=== PATIENT | female | born 1965 | race Caucasian/White ===

== ENCOUNTER → 2019-08-27 13:30 | Outpatient (CLI) | payer MEDICARE, MEDICAID, SELFPAY ==
--- NOTE | ~2019-08-27 | MM_ITS ---
EXAMINATION: MM screening adia BI w sydni HISTORY: Screening mammogram, family history of breast cancer in her sister. TECHNIQUE: Craniocaudal and mediolateral oblique 3-D tomosynthesis images were obtained and synthetic 2-D images were generated. CAD analysis was submitted and interpreted. COMPARISON: 07/26/2018, 02/21/2017, 02/18/2016 BREAST PARENCHYMAL COMPOSITION: There are scattered areas of fibroglandular density. FINDINGS: RIGHT BREAST: An asymmetry is present in the middle third of the outer breast 6 cm from the nipple on the craniocaudal view. LEFT BREAST: There is no evidence of suspicious mass, calcification, or architectural distortion to s uggest malignancy. There has been no significant interval change. IMPRESSION: 1. Right breast asymmetry on the craniocaudal view. 2. Additional mammographic views and possible breast ultrasound are recommended. BI-RADS Category 0: Incomplete: Needs additional imaging evaluation. Reviewed, dictated and finalized at location A. IMPRESSION: 1. Right breast asymmetry on the craniocaudal view. 2. Additional mammographic views and possible breast ultrasound are recommended . BI-RADS Category 0: Incomplete: Needs additional imaging evaluation.
== END ==
PROVIDERS: PCP Nurse Practitioner Family; Visit Provider Nurse Practitioner Family
DX: Z12.31 Encounter for screening mammogram for malignant neoplasm of breast (principal); R92.8 Other abnormal and inconclusive findings on diagnostic imaging of breast
CPT/HCPCS: 77063; 77067

== ENCOUNTER → 2019-09-11 08:16 | Outpatient (CLI) | payer MEDICARE, MEDICAID, SELFPAY ==
--- NOTE | ~2019-09-11 | US_ITS ---
Please refer to diagnostic mammogram report dated 09/11/2019 for details. Reviewed, dictated and finalized at location A.
--- NOTE | ~2019-09-11 | MM_ITS ---
EXAMINATION: MM diagnostic mammo unilat RT HISTORY: Follow-up right breast asymmetry TECHNIQUE: Additional 3-D tomosynthesis images of the right breast were performed and synthetic 2-D i mages were generated. CAD analysis was submitted and interpreted. High resolution right breast ultras ound was performed. COMPARISON: Comparison to multiple prior studies sequentially, with oldest reviewed study dated 07/23. FINDINGS: MAMMOGRAPHIC FINDINGS: Breast composed of scattered areas of fibroglandular density. There are no suspicious masses, calcifi cations or architectural distortion in the right breast to suggest malignancy. ULTRASOUND: Right breast ultrasound: At 9:00, 5 cm from the nipple, there is a oval circumscribed hypoechoic mass with parallel orientatio n, no significant posterior features or internal vascularity. This mass measures 4 x 3 x 4 mm. IMPRESSION: 1. Probable benign right breast mass at 9:00, 5 cm from the nipple. 2. Recommend 6 month follow-up right breast ultrasound BI-RADS category 3, probably benign findings. Reviewed, dictated and finalized at location A.
== END ==
PROVIDERS: PCP Nurse Practitioner Family; Visit Provider Nurse Practitioner Family
DX: R92.8 Other abnormal and inconclusive findings on diagnostic imaging of breast (principal)
CPT/HCPCS: 76642; 77065

== ENCOUNTER → 2020-04-17 07:42 | Outpatient (CLI) | payer MEDICARE, MEDICAID, SELFPAY ==
--- NOTE | ~2020-04-17 | US_ITS ---
EXAMINATION: US breast RT limited HISTORY: Six-month follow-up for probably benign right breast mass TECHNIQUE: Limited right breast ultrasound is performed. FINDINGS: There is a stable 4 mm x 2 mm oval, circumscribed, parallel, hypoechoic mass with no oil separator ior features or internal vascularity at the 9:00 location 5 cm from the nipple. IMPRESSION: Stable, probably benign right breast mass. Follow-up targeted ultrasound six months is recommended. BI-RADS category 3, probably benign findings. Reviewed, dictated and finalized at location A. EN PRINTING MACHINE LOADER UNLOADER IMPRESSION: Stable, probably benign right breast mass. Follow-up targeted ultrasound six mo nths is recommended. BI-RADS category 3, probably benign findings.
--- NOTE | ~2020-04-17 | DEXA_ITS ---
Bone Density Report Name: Juanita Dunbar Age: 54 Sex: Female Ethnicity: White Date of : 1965 Indication: postmenopausal; screening for osteoporosis; height loss; seizure disorder; hysterectomy; Referring Provider: WING, REYES Study: Bone densitometry was performed. Exam Date: April 17, 2020 Accession number: [id number] Bone Density: Region BMD T-score Z-score Classification AP Spine (L1, L3, L4) 1.034 -0.2 1.0 Normal Femoral Neck (Left) 0.607 -2.2 -1.1 Osteopenia Total Hip (Left) 0.880 -0.5 0.2 Normal Femoral Neck (Right) 0.642 -1.9 -0.8 Osteopenia Total Hip (Right) 0.808 -1.1 -0.4 Osteopenia Total Hip Mean 0.844 -0.8 -0.1 Normal World Health Organization criteria for BMD impression classify patients as: Normal (T-score at or above -1.0), Osteopenia (T-score between -1.0 and -2.5), or Osteoporosis (T-score at or below -2.5). 10-year Fracture Risk(1): Major Osteoporotic Fracture 8.1% Hip Fracture 1.7% Reported Risk Factors: [place] (), Neck BMD=0.607, BMI=36.3, smoking (1) FRAX(R) Version 3.08. Fracture probability calculated for an untreated patient. Fracture probability may be lower if the patient has received treatment. Clinical Information Provided by Patient: Smokes Has used the following medications: Vitamin D Has the following medical conditions: Any Seizure Disorders, Hysterectomy, kidney failure, prescription bowel med Patient maximum height was 66 Menopause Age: 33 No regular weight bearing exercise Does not regularly consume dairy products Drinks caffeinated beverages Onset of menses at age 16 Number of children 1 Impression: The patient has low bone mass, based on the Left Femoral Neck T-score. The patient has an estimated ten-year risk of hip fracture of 1.7% and an estimated ten-year risk of major fracture of 8.1%, based on the WHO FRAX algorithm. The patient has risk factors, including: smoking. Discussion: BONE DENSITY IS LOW AT ONE OR MORE SKELETAL SITES. This patient's lowest T-score is low at one or more skeletal sites. It meets the World Health Organization's (WHO) criteria for ?low bone mass? (T-score between -1.0 and -2.5). The patient's 10-year risk of fracture as calculated by FRAX is less than the threshold where pharmacological therapy is recommended by the National Osteoporosis Foundation (NOF). However, all treatment decisions require clinical judgment and consideration of individual patient factors, including patient preferences, comorbidities, previous drug use, risk factors not captured in the FRAX model (e.g., frailty, falls, vitamin D deficiency, increased bone turnover, interval significant decline in bone density) and possible under or overestimation of fracture risk by FRAX. The patient should follow a healthful lifestyle (good nut
== END ==
PROVIDERS: PCP Nurse Practitioner Family; Visit Provider Nurse Practitioner Family
DX: N63.11 Unspecified lump in the right breast, upper outer quadrant (principal); Z78.0 Asymptomatic menopausal state; M85.852 Other specified disorders of bone density and structure, left thigh; M85.851 Other specified disorders of bone density and structure, right thigh
CPT/HCPCS: 76642; 77080

== ENCOUNTER → 2020-08-26 08:49 | Outpatient (CLI) | payer MEDICARE, SELFPAY ==
--- NOTE | ~2020-08-26 | US_ITS ---
EXAMINATION: US breast RT limited HISTORY: Six-month follow-up for probably benign right breast mass TECHNIQUE: Limited right breast ultrasound was performed. COMPARISON: 04/17/2020, 09/11/2019 FINDINGS: There is a stable 5 mm x 2 mm oval, circumscribed, parallel, hypoechoic mass with no contact center engineer ior features or internal vascularity at the 9:00 location 5 cm from the nipple. IMPRESSION: Stable, probably benign right breast mass. Given the 12 months of interval stability, follow-up targe desire right breast ultrasound in one year is recommended. BI-RADS category 3, probably benign findings. Reviewed, dictated and finalized at location A. IMPRESSION: Stable, probably benign right breast mass. Given the 12 months of interval stab ility, follow-up targeted right breast ultrasound in one year is recommended. BI-RADS category 3, probably benign findings.
--- NOTE | ~2020-08-26 | MM_ITS ---
EXAMINATION: MM screening adia BI w sydni HISTORY: Screening mammogram, family history of breast cancer in her sister. TECHNIQUE: Craniocaudal and mediolateral oblique 3-D tomosynthesis images were obtained and synthetic 2-D images were generated. CAD analysis was submitted and interpreted. COMPARISON: 09/11/2019, 08/27/2019, 07/26/2018, 02/21/2017 BREAST PARENCHYMAL COMPOSITION: There are scattered areas of fibroglandular density. FINDINGS: There is no evidence of suspicious mass, calcification, or architectural distortion to sugg est malignancy in either breast. There has been no suspicious interval change. IMPRESSION: 1. No mammographic evidence of malignancy. 2. Recommend routine screening mammography in one year. BI-RADS Category 1: Negative Reviewed, dictated and finalized at location A.
== END ==
PROVIDERS: PCP Nurse Practitioner Family; Visit Provider Nurse Practitioner Family
DX: Z12.31 Encounter for screening mammogram for malignant neoplasm of breast (principal); N63.0 Unspecified lump in unspecified breast; R92.8 Other abnormal and inconclusive findings on diagnostic imaging of breast
CPT/HCPCS: 76642; 77063; 77067

== ENCOUNTER 2020-11-20 01:27 | Observation (INO) | payer MEDICARE, MEDICAID, SELFPAY ==
[2020-11-20] VITALS (24 sets, daily range): BP systolic 111–155; BP diastolic 62–108; PULSE 63–113; RESP 12–20; TEMP 36.1–36.9; O2SAT 92–97; BMI 33.0
--- NOTE | ~2020-11-20 | CT_ITS ---
EXAMINATION: CT brain wo con DATE: 11/20/2020 02:25 INDICATION: Seizure TECHNIQUE: Computed tomography (CT) of the head was performed without intravenous contrast. The mA wa s adjusted according to patient size. Iterative reconstruction technique was employed. Exam dose: 60 5.33 mGy-cm total exam DLP. COMPARISON: 01/18/2018 CT brain FINDINGS: Examination is very limited due to extensive motion artifact. No gross intracranial mass lesion or hemorrhage or midline shift or mass effect is evident. Normal ve ntricular size. No obvious skull fracture is evident. IMPRESSION: Very limited examination due to extensive motion artifact Reviewed, dictated and finalized at [facility]. Reviewed, dictated and finalized at [facility].
--- NOTE | 2020-11-20 01:49 | ED.SEIZURE ---
HPI - Seizure General Chief Complaint: Seizure Stated Complaint: seizures Time Seen by Provider: 11/20/20 01:45 Source: family and EMS Mode of arrival: EMS Limitations: altered mental status and clinical condition History of Present Illness HPI Narrative: Patient is a 55-year-old female brought in by EMS due to seizure x4 episodes lasting for approximately 30 seconds each witnessed by family member, which was described as tonic-clonic and eyes rolling back of her head , no urinary or bowel incontinence, with postictal confusion. Patient was diagnosed with seizures months ago and placed on Keppra. Family member unsure if patient is compliant with her Keppra. Seizure History: Yes Related Data Allergies Allergy/AdvReac Type Severity Reaction Status Date / Time No Known Allergies Allergy Unverified 06/04/18 18:13 Review of Systems Review of Systems: ROS unobtainable: Yes unobtainable due to medical condition (Postictal) PMFSH Comments Past medical history: Seizure Family history: Unknown Social history: Unknown Exam Const: General: cooperative, healthy appearing, comfortable, no acute distress, well developed, alert and awake; No confusion Limitations: no limitations and other limitations (Altered mental status/postictal) HENMT: Head: normal to inspection, normocephalic and atraumatic Ears: hearing grossly normal bilaterally, TM normal on the right and TM normal on the left General nose exam: Normal external nose present, Normal nares present and No nasal discharge present Face and sinus: normal facial exam Mouth: Yes Normal oral and palatal mucosa present, Yes lip normal, Yes tongue normal and Yes oropharynx normal Throat: posterior oropharynx normal, tonsils normal and uvula midline Eyes: General: appearance normal, both eyes and all related structures Pupils: Equal, round and reactive pupils present EOM: EOMs intact bilaterally Neck: Neck: normal visual inspection, full ROM, no lymphadenopathy and no meningeal signs Chest: Chest palpation & inspection: normal inspection of the chest Resp: Effort & Inspection: normal respiratory effort, able to speak in complete sentences, no respiratory distress and not tachypneic Auscultation: clear to auscultation bilaterally, no crackles, no rales, no rhonchi and no wheezes Cardio: Rate: regular rate Rhythm: regular rhythm GI: Inspection: normal to inspection GI Palp: No abdominal tenderness, Yes Soft to palpation, No Tenderness to palpation present (GI), No Guarding due to palpation present (GI), No Rigid due to palpation and No Rebound tenderness present Auscultation: normal bowel sounds : General: Yes no CVA tenderness Back/Spine/Pelvis: Back: no CVA tenderness Skin: General skin exam: normal color, no rashes or lesions noted, elasticity normal and turgor normal Neuro: General: tone normal, moves all extremities, Normal light touch and pain sensation and no focal motor deficits Extrem: General: normal to inspection and capillary refill normal Psych: Appearance: grossly normal and well kempt Course Course Emergency Course: Patient had a seizure episode while here in the emergency room, was given Ativan 2 mg IV x1 and Keppra 1000 mg IV x1. No seizure since Vital Signs Vital signs: Vital Signs Temperature 36.1 C L 11/20/20 01:27 Respiratory Rate 16 11/20/20 01:27 Temperature 36.1 C L 11/20/20 01:27 Pulse Rate 80 11/20/20 02:42 Respiratory Rate 15 11/20/20 02:42 Blood Pressure 125/82 11/20/20 02:42 Pulse Oximetry 94 11/20/20 02:42 MDM - Seizure MDM Narrative Medical decision making narrative: Reviewed her labs and her CT head. CBC within normal limits except for a low platelets of 130. Chemistry within normal limits. UA no signs of urinary tract infection. CT scan of her head did not show any acute intracranial process. Since patient had 4 seizures prior to arrival and another seizure here in the emergency room, was given IV Kepp
--- NOTE | 2020-11-20 02:04 | PC.NURSE ---
pt medicated for witnessed seizure. now resting in bed with seizure pads in place. meds given as ordered.
[2020-11-20] MEDS: SODIUM CHLORIDE 0.9% IV 1,000 ML 999 ML IV CONT (02:08)
[2020-11-20] MEDS: LORazepam INJ (*CRX) 2 MG/ML VIAL IV PUSH (02:09)
[2020-11-20] MEDS: levETIRAcetam 1000MG/NACL100ML 1,000 MG/100 ML BAG 400 MG IVPB (02:09)
[2020-11-20 02:51] LABS: Basophils Absolute Auto 0.1 K/mm3 (0.0-0.1); Basophils Percent Auto 0.9 % (0.2-1.2); Eosinophils Absolute Auto 0.2 K/mm3 (0-0.3); Eosinophils Percent Auto 2.1 % (0-4.4); Hemoglobin 14.5 g/dL (12.0-15.0); Immature Granulocyte Absolute 0.04 K/mm3 (0.00-0.031); Immature Granulocyte Percent A 0.5 % (0-0.5); Immature Platelet Fraction Pct 12.2 % (0.9-11.2); Lymphocytes Absolute Auto 0.78 K/mm3 (0.9-3.2); Lymphocytes Percent Auto 10.4 % (18.3-44.2); Mean Corpuscular HGB Conc 31.5 g/dl (32-36); Mean Corpuscular Volume 95.2 fl (80-100); Mean Platelet Volume 12.6 fl (7.4-10.4); Monocytes Absolute Auto 0.3 K/mm3 (0.1-0.6); Monocytes Percent Auto 4.4 % (2.6-8.5); Neutrophils Absolute Auto 6.1 K/mm3 (1.3-6.7); Neutrophils Percent Auto 81.7 % (45.5-73.1); Platelet Count Result 130 k/mm3 (150-375); Red Blood Count 4.83 M/mm3 (4.2-5.4); Red Cell Distribution Width 15.1 % (11.5-14.5); White Blood Count 7.5 K/mm3 (4.5-10.0)
[2020-11-20 02:57] LABS: Add Urine Microscopic? YES; Appearance Urine Cloudy (Clear); Bilirubin Urine Negative (Negative); Blood Urine Negative (Negative); Color Urine Yellow (Yellow); Glucose Urine UA Negative (Negative); Ketones Urine 1+ mg/dL (Negative); Leukocyte Esterase Ur Negative LEU/UL (Negative); Mucus Urine Rare /lpf; Nitrate Urine Negative (Negative); Protein Urine 1+ mg/dL (Negative); RBC Urine 0-2 /hpf (0-2); Specific Grav Ur 1.018 (1.001-1.035); Squamous Epithelial Cell Urine Occasional /hpf (Few); Urobilinogen Urine Negative mg/dL (<2.0); WBC Urine 0-3 /hpf
[2020-11-20 03:03] LABS: Alanine Aminotransferase 17 U/L (4-35); Albumin Level 4.3 g/dL (3.5-5.1); Alkaline Phosphatase 87 U/L (38-126); Anion Gap 10 mmol/L (8-16); Aspartate Amino Transferase 25 U/L (14-36); Bilirubin,Total 0.5 mg/dL (0.2-1.3); Blood Urea Nitrogen 13 mg/dL (7-17); Calcium 9.3 mg/dL (8.4-10.2); Carbon Dioxide 23 mmol/L (22-30); Chloride 108 mmol/L (98-107); Estimated Glomerular Filt Rate > 60; Glucose 144 mg/dL (65-105); Sodium 141 mmol/L (137-145)
[2020-11-20 03:15] LABS: Troponin I < 0.012 ng/mL (0.000-0.034)
--- NOTE | 2020-11-20 04:11 | PC.NURSE ---
pt appears asleep, resting in bed c eyes closed. resps even/nonlabored. NO loss of bowel or bladder during seizure episodes. pt continues to remove pulse ox monitor when this RN leaves room. asked pt if she knew where she was at, to which she responded Hospital . pt then went back to sleep. family at bedside. will continue to monitor.
--- NOTE | 2020-11-20 04:54 | PC.NURSE ---
per EMS medic, pt's home meds include: Aspirin atorvastatin fluoxetine hctz levothyroxine meloxicam oxybutynin
--- NOTE | 2020-11-20 05:14 | PC.NURSE ---
HELDER received. Report given by SHANIA Gaston at 0500. All questions answered and plan of care reviewed. This patient to go to ICU room 2.
--- NOTE | 2020-11-20 05:15 | ADMGEN ---
This patient, Juanita Dunbar, was admitted to Intensive Care Unit-2 at 0515 from the Emergency Department. Patient/family oriented to hospital policies and general routines including ID bracelet, bed and alarms, visiting hours, pain management, procedures, bathroom and other care routines, personal items, smoking policy, room service/diet, and visiting hours. Information on how to activate the Rapid Response Team has been discussed. Patient/Family are encouraged to report perceived risks to care and to ask questions if they do not understand what they are told or what they should do.
[2020-11-20] MEDS: LACTATED RINGERS 1,000 ML 125 ML IV CONT (07:37)
--- NOTE | 2020-11-20 09:11 | WPDCNINT ---
Assessment and Plan Assessment and plan (1) Seizures: Code(s): R56.9 - Unspecified convulsions Status: Acute Assessment and Plan: Patient presented with seizures x3 at home which was witnessed by the family. One seizure was witnessed in the ER -patient was given Keppra 1000 mg IV x1 and Ativan in the ER, no seizure activity noted after that -started on Keppra 500 mg IV q.12 hours in the ICU -patient is awake, alert, oriented, nonfocal -neurology has been consulted -patient did tell me that she may have forgot to take her Keppra at home -continue seizure precautions (2) Essential hypertension: Code(s): I10 - Essential (primary) hypertension Status: Acute Assessment and Plan: History of essential hypertension, will continue with home medications, metoprolol, hydrochlorothiazide (3) Hypothyroidism: Code(s): E03.9 - Hypothyroidism, unspecified Status: Acute Assessment and Plan: Restart levothyroxine (4) Hyperlipidemia: Code(s): E78.5 - Hyperlipidemia, unspecified Status: Acute Assessment and Plan: Restart atorvastatin (5) Bipolar disorder: Code(s): F31.9 - Bipolar disorder, unspecified Status: Acute Assessment and Plan: Continue fluoxetine, (6) DVT prophylaxis: Code(s): Z29.9 - Encounter for prophylactic measures, unspecified Status: Acute Assessment and Plan: SCDs Additional Plan Will start p.o. diet Discussed with patient updated with her condition and plan of care Code status: Full code Critical care time spent: 43 minutes [place] [address] [place] [address] Progress NoteSigned Patient: Andres Gleason GMR#: [id number]: 9Acct:[id number]/Sex: 61 / MADM Date: 11/10/20Loc: [facility]3Attending Dr: Beau Mike MD cc: ~ Progress Note: A&P Assessment and Plan (1) Acute respiratory failure with hypoxia and hypercapnia: Code(s): J96.01 - Acute respiratory failure with hypoxia; J96.02 - Acute respiratory failure with hypercapnia Status: Acute Assessment and Plan: Acute hypercapnic respiratory failure likely related to COPD exacerbation, likely pneumonia -patient was intubated on 11/10/2020 -successfully extubated on 11/18/2020 -status post cefepime and vancomycin -repeat sputum resources representative of the lower respiratory tract -continue bronchodilators -discussed with sales assistant, recommended ABGs now pCO2 level without wearing BiPAP, will place orders -patient did not been his BiPAP overnight (2) Acute exacerbation of chronic obstructive airways disease: Code(s): J44.1 - Chronic obstructive pulmonary disease with (acute) exacerbation Status: Acute Assessment and Plan: Continue , bronchodilators,ion -off steroids (3) Tobacco dependence: Code(s): F17.200 - Nicotine dependence, unspecified, uncomplicated Status: Acute Assessment and Plan: Discussed with patient regarding cessation of tobacco use, I did discuss with him that given his COPD, smoking would be detrimental to his function -patient stated he is going to try (4) Alcohol abuse: Code(s): F10.10 - Alcohol abuse, uncomplicated Status: Acute Assessment and Plan: Continue thiamine and folic acid (5) Elevated troponin: Code(s): R77.8 - Other specified abnormalities of plasma proteins Status: Acute Assessment and Plan: Elevated troponins, trending down. Likely related to her acute respiratory failure COPD exacerbation -echocardiogram 11/13/2019: Mild left ventricular hypertrophy, moderate global hypokinesis, EF 40%, grade 2 diastolic dysfunction, no significant valve disease, no pulmonary hypertension -continue diuresis (6) DVT prophylaxis: Code(s): Z29.9 - Encounter for prophylactic measures, unspecified Status: Acute Assessment and Plan: DVT prophylaxis: Lovenox (7) Dietary counseling and surveillance:
--- NOTE | 2020-11-20 09:15 | CONS_ITS ---
This report was recreated on November 26, 2020. Original report was signed by Dr. Manda Hurd on 11/20/20 at 1106. Addendum was also signed by Dr. Humberto Hurd on November 20, 2020 at 1442. ADDENDUM Tobacco use: Counseled patient on cessation of tobacco use, and marijuana use Addendum Documented By: Manda Hurd MD 11/20/20 1442 Addendum Signed By: <Electronically signed by Manda Hurd MD>10/29 09/17 1442 Assessment and Plan Assessment and plan (1) Seizures: Code(s): R56.9 - Unspecified convulsions Status: Acute Assessment and Plan: Patient presented with seizures x3 at home which was witnessed by the family. One seizure was witnessed in the ER -patient was given Keppra 1000 mg IV x1 and Ativan in the ER, no seizure activity noted after that -started on Keppra 500 mg IV q.12 hours in the ICU -patient is awake, alert, oriented, nonfocal -neurology has been consulted -patient did tell me that she may have forgot to take her Keppra at home -continue seizure precautions (2) Essential hypertension: Code(s): I10 - Essential (primary) hypertension Status: Acute Assessment and Plan: History of essential hypertension, will continue with home medications, metoprolol, hydrochlorothiazide (3) Hypothyroidism: Code(s): E03.9 - Hypothyroidism, unspecified Status: Acute Assessment and Plan: Restart levothyroxine (4) Hyperlipidemia: Code(s): E78.5 - Hyperlipidemia, unspecified Status: Acute Assessment and Plan: Restart atorvastatin (5) Bipolar disorder: Code(s): F31.9 - Bipolar disorder, unspecified Status: Acute Assessment and Plan: Continue fluoxetine, (6) DVT prophylaxis: Code(s): Z29.9 - Encounter for prophylactic measures, unspecified Status: Acute Assessment and Plan: SCDs Additional Plan Will start p.o. diet Discussed with patient updated with her condition and plan of care Code status: Full code Critical care time spent: 43 minutes Personnel Security Assistant Consult Note Consult date: 11/20/20 Time Seen: 06:58 Reason for consult: Seizures, altered mental status HPI: Juanita Dunbar is a 55 year old female with past medical history of seizures, hypertension, hypothyroidism, arthritis, back pain, degenerative disc disease, fibromyalgia, bipolar, depression, tobacco abuse, marijuana use presented the EDOn 11/20/2020 via EMS after having witnessed seizures x4 with the family, he is lasting 30 seconds. Seizures were described as as tonic clonic with eyes rolling back in her head, no urinary or bowel incontinence. Patient received Keppra and Ativan in the ER, CT scan of the brain did not show any acute intracranial process. Patient did have a seizure in the ER also. And since the IV Keppra and Ativan she did not have any further seizures. Patient was transferred to the ICU for further management Patient seen and examined this morning, is awake, alert, oriented x3, nonfocal, able to answer questions appropriately and follows simple commands. No further seizure activity since coming to the ICU. Patient states she smokes 1 and half packet of cigarettes per day, also smokes marijuana daily, she denies any alcohol use. Patient denies any chest pain, shortness of breath, abdominal pain nausea vomiting. States she may have not taken her Keppra. Patient is hemodynamically stable, afebrile, good urine output Review of Systems Review of Systems: All systems reviewed & are unremarkable except as noted in HPI and
[2020-11-20] MEDS: levETIRAcetam 500MG/NACL 100ML 500 MG/100 ML BAG 400 MG IVPB ×2 (10:41→23:44)
--- NOTE | 2020-11-20 11:46 | PM.IMHP ---
H&P: HPI History of Present Illness Date/Time: 11/20/20 11:46 Chief Complaint: Seizures, altered mental status. Narrative: Patient with past medical history Of seizures, presented to the emergency department with recurrent seizures, occurred 4 times, started yesterday, lasted for few minutes, treated with Keppra and Ativan in the emergency department, CT scan of the was unremarkable, patient was admitted to the intensive care unit for further evaluation and management. At this time patient is alert and oriented times 2-3, but she has poor memory unable to provide more useful information, she notes that she has had seizure yesterday but she does not remember what happened exactly. Patient is resting comfortably denies any active complaints at this time. I tried to call patient's family but no one answered. Information were obtained from the patient and reviewing medical chart. Review of Systems Review of Systems: All systems reviewed & are unremarkable except as noted in HPI and below Constitutional: Constitutional: Denies body ache(s) and Denies fatigue Eyes: Eyes: Denies blurry vision ENT: Denies dry mouth Cardiovascular: Cardiovascular: Denies chest pain with activity and Denies dyspnea Respiratory: Respiratory: Denies dyspnea Gastrointestinal: Gastrointestinal: Denies abdominal pain Musculoskeletal: Musculoskeletal: Denies deformity Neurologic: Denies seizure-like activity Psychiatric: Psychiatric: Denies homicidal ideation Endocrine: Endocrine: Denies fatigue PMFSH Past Medical History Medical History Arthritis Back pain Bipolar disorder Degenerative disc disease Depression Fibromyalgia Hypertension Hypothyroidism Seizure Family History Family History Mother Diabetes mellitus Alzheimer disease Father Lung cancer Social History Social History Smoking packs per day: 0.5 Smoking cigarettes per day: 10.0 Years smoked: 35 Smoking pack-years: 17.50 Smoking status: Current every day smoker Tobacco type: cigarettes Second hand tobacco smoke exposure: Yes Alcohol intake: never Substance use: current Substance use type: marijuana Other substance usage details: medical [place] Gender identity (if verbalized by the patient): Female Spiritual care concerns: No Meds Home Medications and Allergies Home Medications Medication Instructions Recorded Confirmed Type aspirin 81 mg PO DAILY 11/20/20 11/20/20 History atorvastatin 10 mg PO HS 11/20/20 11/20/20 History cholecalciferol (vitamin D3) 1,250 mcg PO WEEKLY 11/20/20 11/20/20 History cyanocobalamin (vitamin B-12) 1,000 mcg SUBCUT MONTHLY 11/20/20 11/20/20 History fluoxetine 60 mg PO DAILY 11/20/20 11/20/20 History hydrochlorothiazide 12.5 mg PO DAILY 11/20/20 11/20/20 History hydroxyzine HCl 25 mg PO TID PRN 11/20/20 11/20/20 History levetiracetam 500 mg PO BID 11/20/20 11/20/20 History levothyroxine 150 mcg PO QAM 11/20/20 11/20/20 History meloxicam 7.5 mg PO BID 11/20/20 11/20/20 History metoprolol succinate 25 mg PO DAILY 11/20/20 11/20/20 History oxybutynin chloride 15 mg PO DAILY 11/20/20 11/20/20 History potassium chloride 10 meq PO DAILY 11/20/20 11/20/20 History pregabalin 200 mg PO BID 11/20/20 11/20/20 History solifenacin 10 mg PO DAILY 11/20/20 11/20/20 History Allergies Allergy/AdvReac Type Severity Reaction Status Date / Time No Known Allergies Allergy Unverified 06/04/18 18:13 Vital Signs Vital Signs - 24 hr 11/20/20 01:27 11/20/20 01:58 11/20/20 02:04 Temperature 97.0 F L Pulse Rate 113 H 83 Respiratory Rate 16 16 Blood Pressure Pulse Oximetry 11/20/20 02:42 11/20/20 02:46 11/20/20 03:01 Temperature Pulse Rate 80 Respiratory Rate 15 Blood Pressure 125/82 122/78 133/84 Pulse Oximetry 94 11/20/20 03:16 06
--- NOTE | 2020-11-20 14:15 | PC.NURSE ---
Updated family member via telephone on plan of care.
--- NOTE | 2020-11-20 15:14 | ECG_ITS ---
Measurements Intervals [place] Rate: 56 P: 24 MT: 156 QRS: 32 QRSD: 94 T: 107 QT: 448 QTc: 433 Interpretive Statements SINUS BRADYCARDIA ST-T WAVE ABNORMALITY IN ANTERIOR LEADS- CONSIDER ISCHEMIA BASELINE ARTIFACT- I, II, III, AVR, AVL, AVF, V1, V3-V6 ABNORMAL ECG Electronically Signed On 11-20-2020 16:20:41 CDT by Gianfranco Barnett D.O.
[2020-11-20] MEDS: PREGABALIN (*CRX) 50 MG CAPSULE 200 MG PO (16:23)
--- NOTE | 2020-11-20 16:46 | WPDNEURCNPN ---
Assessment and Plan Additional Plan patient is receiving levetiracetam medication doses will be adjusted accordingly and she will be followed Consult date: 11/20/20 Time Seen: 11:00 HPI: Juanita Dunbar is a 55 year old female 55 years old lady has been admitted to intensive care of [facility] through the emergency room for the complaints of change in the mental status in addition to the history of seizures recurrence in frequency that is at least 4 times is starting 24 hours before the admission the patient received Keppra and Ativan in the emergency room in addition to CT scan of the head which was negative for any bleed or space-occupying lesion by the time she was examined by the hospitalist on the floor she was oriented times 2 to 3 and was not complaining of any specific problem. Patient does have ongoing history of arthritis with chronic back pain, bipolar disorder, fibromyalgia, and hypertension and hypothyroidism, initial evaluation included the CT scan of the head which documented very limited exam due to extensive motion artifact Review of Systems Review of Systems: All systems reviewed & are unremarkable except as noted in HPI and below PMFSH Past Medical History Medical History Arthritis Back pain Bipolar disorder Degenerative disc disease Depression Fibromyalgia Hypertension Hypothyroidism Seizure Family History Family History Mother Diabetes mellitus Alzheimer disease Father Lung cancer Social History Social History Smoking packs per day: 0.5 Smoking cigarettes per day: 10.0 Years smoked: 35 Smoking pack-years: 17.50 Smoking status: Current every day smoker Tobacco type: cigarettes Second hand tobacco smoke exposure: Yes Alcohol intake: never Substance use: current Substance use type: marijuana Other substance usage details: medical [place] Gender identity (if verbalized by the patient): Female Spiritual care concerns: No Meds Home Medications and Allergies Home Medications Medication Instructions Recorded Confirmed Type aspirin 81 mg PO DAILY 11/20/20 11/20/20 History atorvastatin 10 mg PO HS 11/20/20 11/20/20 History cholecalciferol (vitamin D3) 1,250 mcg PO WEEKLY 11/20/20 11/20/20 History cyanocobalamin (vitamin B-12) 1,000 mcg SUBCUT MONTHLY 11/20/20 11/20/20 History fluoxetine 60 mg PO DAILY 11/20/20 11/20/20 History hydrochlorothiazide 12.5 mg PO DAILY 11/20/20 11/20/20 History hydroxyzine HCl 25 mg PO TID PRN 11/20/20 11/20/20 History levetiracetam 500 mg PO BID 11/20/20 11/20/20 History levothyroxine 150 mcg PO QAM 11/20/20 11/20/20 History meloxicam 7.5 mg PO BID 11/20/20 11/20/20 History metoprolol succinate 25 mg PO DAILY 11/20/20 11/20/20 History oxybutynin chloride 15 mg PO DAILY 11/20/20 11/20/20 History potassium chloride 10 meq PO DAILY 11/20/20 11/20/20 History pregabalin 200 mg PO BID 11/20/20 11/20/20 History solifenacin 10 mg PO DAILY 11/20/20 11/20/20 History Allergies Allergy/AdvReac Type Severity Reaction Status Date / Time No Known Allergies Allergy Unverified 06/04/18 18:13 Vital Signs Vital Signs - 24 hr 11/20/20 01:27 11/20/20 01:58 11/20/20 02:04 Temperature 36.1 C L Pulse Rate 113 H 83 Respiratory Rate 16 16 Blood Pressure Pulse Oximetry 11/20/20 02:42 11/20/20 02:46 11/20/20 03:01 Temperature Pulse Rate 80 Respiratory Rate 15 Blood Pressure 125/82 122/78 133/84 Pulse Oximetry 94 11/20/20 03:16 11/20/20 03:31 11/20/20 03:46 Temperature Pulse Rate 88 Respiratory Rate 16 Blood Pressure 132/71 123/92 H 111/62 Pulse Oximetry 92 11/20/20 04:01 11/20/20 04:08 11/20/20 04:10 Temperature Pulse Rate 68 73 Respiratory Rate 13 12 Blood Pressure 123/83 123/83 Pulse Oximetry 96 11/20/20 04:15 11/20/20 04:16 11/20
[2020-11-20] MEDS: LACTATED RINGERS 1,000 ML 75 ML IV CONT (23:46)
[2020-11-20] MEDS: ATORVASTATIN 10 MG TABLET PO (23:46)
[2020-11-21] VITALS: BP 143/80; PULSE 77; RESP 14; TEMP 36.6; O2SAT 95
--- NOTE | 2020-11-21 03:30 | PC.NURSE ---
This patient, Juanita Dunbar, was transferred to [ [id number]] on 11/21/20 at 0330. Personal belongings sent with patient. Report given to [Carole ]. Appropriate documentation sent with patient.
--- NOTE | 2020-11-21 03:47 | PC.NURSE ---
This patient, Juanita Dunbar, was transferred to [ [id number]] on 11/21/20 at 0330 from ICU . Personal belongings sent with patient. Report taken via phone from Erickson .
[2020-11-21] MEDS: LEVOTHYROXINE SODIUM 150 MCG TABLET PO (05:58)
[2020-11-21 06:00] VITALS: BP 127/85; PULSE 56; RESP 20; TEMP 37.5; O2SAT 100
[2020-11-21 06:50] LABS: Basophils Absolute Auto 0.1 K/mm3 (0.0-0.1); Eosinophils Absolute Auto 0.2 K/mm3 (0-0.3); Hematocrit 44.2 % (37.0-47.0); Hemoglobin 14.2 g/dL (12.0-15.0); Immature Granulocyte Absolute 0.05 K/mm3 (0.00-0.031); Immature Granulocyte Percent A 0.5 % (0-0.5); Immature Platelet Fraction Pct 12.8 % (0.9-11.2); Lymphocytes Absolute Auto 1.98 K/mm3 (0.9-3.2); Lymphocytes Percent Auto 20.9 % (18.3-44.2); Mean Corpuscular HGB Conc 32.1 g/dl (32-36); Mean Corpuscular Hemoglobin 29.3 pg (26-34); Mean Corpuscular Volume 91.3 fl (80-100); Mean Platelet Volume 13.6 fl (7.4-10.4); Monocytes Absolute Auto 0.6 K/mm3 (0.1-0.6); Monocytes Percent Auto 6.8 % (2.6-8.5); Neutrophils Absolute Auto 6.5 K/mm3 (1.3-6.7); Neutrophils Percent Auto 68.8 % (45.5-73.1); Platelet Count Result 140 k/mm3 (150-375); Red Blood Count 4.84 M/mm3 (4.2-5.4); Red Cell Distribution Width 14.6 % (11.5-14.5); White Blood Count 9.5 K/mm3 (4.5-10.0)
[2020-11-21 07:12] LABS: Anion Gap 9 mmol/L (8-16); Blood Urea Nitrogen 13 mg/dL (7-17); Carbon Dioxide 25 mmol/L (22-30); Chloride 106 mmol/L (98-107); Estimated CRCL calculation 83 ml/min; Estimated Glomerular Filt Rate > 60; Glucose 84 mg/dL (65-105); Magnesium 1.7 mg/dL (1.6-2.3); Phosphorus 3.3 mg/dL (2.5-4.5); Potassium 3.5 mmol/L (3.4-5.0); Sodium 140 mmol/L (137-145)
[2020-11-21 08:25] VITALS: O2SAT 94
[2020-11-21] MEDS: hydroCHLOROthiazide 12.5 MG CAPSULE PO (09:16)
[2020-11-21] MEDS: ASPIRIN 81 MG CHEWABLE TABLET PO (09:16)
[2020-11-21] MEDS: SOLIFENACIN 5 MG TABLET 10 MG PO (09:16)
[2020-11-21] MEDS: FLUoxetine HCL 20 MG CAPSULE 60 MG PO (09:16)
[2020-11-21] MEDS: levETIRAcetam 500MG/NACL 100ML 500 MG/100 ML BAG 400 MG IVPB (09:16)
[2020-11-21] MEDS: METOPROLOL SUCCINATE EXT REL 25 MG TABCR PO (09:16)
[2020-11-21] MEDS: PREGABALIN (*CRX) 50 MG CAPSULE 200 MG PO (09:19)
--- NOTE | 2020-11-21 13:22 | PM.IMPN ---
Progress Note: A&P Assessment and Plan (1) Bipolar disorder: Code(s): F31.9 - Bipolar disorder, unspecified Status: Acute Assessment and Plan: Continue home medications Monitor mental status Patient denied depression SI or HI at this time (2) Seizures: Code(s): R56.9 - Unspecified convulsions Status: Acute Assessment and Plan: Keppra Ativan prn Consult neurology Plan to discuss neurology about discharge plan Patient is still on IV Keppra (3) Hypothyroidism: Code(s): E03.9 - Hypothyroidism, unspecified Status: Acute Assessment and Plan: Continue home medications Subjective Date/time seen: 11/21/20 13:22 Interval history: Patient is resting comfortably no active complaints at this time Exam Const: General: cooperative and no acute distress HENMT: Head: normal to inspection Eyes: General: appearance normal, both eyes and all related structures Neck: Neck: normal visual inspection Chest: Chest palpation & inspection: normal inspection of the chest Resp: Effort & Inspection: normal respiratory effort Cardio: Jugular venous distension: no JVD Rate: regular rate GI: Inspection: normal to inspection and non-distended Objective Data Vital Signs Vital Signs: Vital Signs - 24 hr 11/20/20 16:00 11/20/20 20:00 11/21/20 00:00 Temperature 97.0 F L 97.8 F Pulse Rate 63 70 77 Respiratory Rate 12 18 14 Blood Pressure 154/87 H 143/80 H Pulse Oximetry 97 93 95 11/21/20 06:00 11/21/20 08:25 Temperature 99.5 F Pulse Rate 56 L Respiratory Rate 20 Blood Pressure 127/85 Pulse Oximetry 100 94 Intake/Output Intake/Output: Intake & Output 11/18/20 11/19/20 11/20/20 11/21/20 23:59 23:59 23:59 23:59 Intake Total 2400 100 Output Total 250 350 Balance 2150 -250 Meds/Results Medications: Active Medications Generic Name Dose Route Start Last Admin Trade Name Freq PRN Reason Stop Dose Admin Aspirin 81 mg 11/21/20 08:00 11/21/20 09:16 Aspirin 81 Mg Chewable Tablet PO 81 mg DAILY@0800 DI Administration Atorvastatin Calcium 10 mg 11/20/20 21:00 11/20/20 23:46 Atorvastatin 10 Mg Tablet PO 10 mg HS DI Administration Fluoxetine HCl 60 mg 11/21/20 09:00 11/21/20 09:16 Fluoxetine Hcl 20 Mg Capsule PO 60 mg DAILY DI Administration Hydrochlorothiazide 12.5 mg 11/21/20 09:00 11/21/20 09:16 Hydrochlorothiazide 12.5 Mg Capsule PO 12.5 mg DAILY DI Administration Lactated Ringer's 1,000 mls @ 75 mls/hr 11/20/20 03:20 11/20/20 23:46 Lr - Lactated Ringers Iv IV CONT 75 mls/hr .[id number] DI Administration Levetiracetam 500 mg in 100 mls @ 400 mls/hr 11/20/20 09:00 11/21/20 09:31 Keppra Iv IVPB Infused Q12HR DI Infusion Levothyroxine Sodium 150 mcg 11/21/20 06:30 11/21/20 05:58 Levothyroxine Sodium 150 Mcg Tablet PO 150 mcg DAILY@0630 DI Administration Lorazepam 2 mg 11/20/20 07:30 Lorazepam Inj (*Crx) 2 Mg/Ml Vial IV PUSH Q2H PRN Seizure Activity Metoprolol Succinate 25 mg 11/21/20 09:00 11/21/20 09:16 Metoprolol Succinate Ext Rel 25 Mg Tabcr PO 25 mg DAILY DI Administration Oxybutynin Chloride 15 mg 11/21/20 09:00 11/21/20 09:15 Oxybutynin Chloride Xl 5 Mg Tab.Er.24 PO 15 mg DAILY DI Administration Pregabalin 200 mg 11/20/20 17:00 11/21/20 09:19 Pregabalin (*Crx) 50 Mg Capsule PO 200 mg BID DI Administration Solifenacin 10 mg 11/21/20 09:00 11/21/20 09:16 Solifenacin 5 Mg Tablet PO 10 mg DAILY DI Administration Radiology Results: ITS Impressions Head CT 11/20/20 04:58 IMPRESSION: Very limited examination due to extensive motion artifact Labs Labs: Laboratory Results - last 24 hr 11/21/20 11/21/20 05:49 05:49 WBC 9.5 RBC 4.84 Hgb 14.2 Hct 44.2 MCV 91.3 MCH 29.3 MCHC 32.1 RDW 14.6 H Plt Count 140 L MPV 13.6 H Immature Gran % (Auto) 0.
[2020-11-21 14:00] VITALS: BP 109/56; PULSE 107; RESP 18; TEMP 36.6; O2SAT 96
--- NOTE | 2020-11-21 14:56 | PM.DS ---
DS: Admitting Diagnosis Admitting Diagnosis Admitting Diagnosis: Seizures DS: Discharge Diagnosis Discharge Diagnosis (1) Bipolar disorder: Code(s): F31.9 - Bipolar disorder, unspecified Status: Acute (2) Hypothyroidism: Code(s): E03.9 - Hypothyroidism, unspecified Status: Acute (3) Hyperlipidemia: Code(s): E78.5 - Hyperlipidemia, unspecified Status: Acute (4) Essential hypertension: Code(s): I10 - Essential (primary) hypertension Status: Acute (5) Seizures: Code(s): R56.9 - Unspecified convulsions Status: Acute DS: Summary Hospital Course Hospital Course: Patient with past medical history Of seizures, presented to the emergency department with recurrent seizures, patient was not compliant with her seizure medications, neurology were consulted, they recommended Keppra, case was discussed with the neurologist before discharge or recommend discharging patient home on 500 mg p.o. of Keppra b.i.d.. Head CT scan was done during this hospitalization was unremarkable. Time Spent with Patient Time attestation: Total time spent providing and/or coordinating discharge services: Time spent: Greater than 30 minutes DS: Data Data Completed and Pending Labs on day of discharge: Labs from last 24 hours 11/21/20 11/21/20 05:49 05:49 WBC 9.5 RBC 4.84 Hgb 14.2 Hct 44.2 MCV 91.3 MCH 29.3 MCHC 32.1 RDW 14.6 H Plt Count 140 L MPV 13.6 H Immature Gran % (Auto) 0.5 Neut % (Auto) 68.8 Lymph % (Auto) 20.9 Cherry % (Auto) 6.8 Eos % (Auto) 2.0 Baso % (Auto) 1.0 Lymph # (Auto) 1.98 Cherry # (Auto) 0.6 Eos # (Auto) 0.2 Baso # (Auto) 0.1 Abs Immat Gran (auto) 0.05 H Absolute Neuts (auto) 6.5 Absolute Nucleated RBC 0.0 Nucleated RBC % 0.0 % Immature Plt Fraction 12.8 H Sodium 140 Potassium 3.5 Chloride 106 Carbon Dioxide 25 Anion Gap 9 BUN 13 Creatinine 0.70 Estim Creat Clear Calc 83 Estimated GFR > 60 Glucose 84 Calcium 9.0 Phosphorus 3.3 Magnesium 1.7 Discharge Plan Discharge Consulting providers: Marques Sheehan Discharging Clinician: Beau Mike Patient Disposition: Home, Self-Care Activity: as tolerated Diet: regular Patient Instructions: Antibiotic Form Stand Alone Forms: General Discharge Information Follow-up/Referrals: Marques Sheehan MD [Physician] - 1 Week Discharge Medications: New levetiracetam [Keppra] 500 mg Tablet 500 mg PO Q12HR Qty: 60 RF: 0 Continued oxybutynin chloride 15 mg tablet extended release 24 hr 15 mg PO DAILY RF: 0 atorvastatin 10 mg tablet 10 mg PO HS RF: 0 potassium chloride 10 mEq tablet extended release 10 meq PO DAILY RF: 0 meloxicam 7.5 mg tablet 7.5 mg PO BID RF: 0 levothyroxine 150 mcg tablet 150 mcg PO QAM RF: 0 hydroxyzine HCl 25 mg tablet 25 mg PO TID PRN (Reason: Itching ) RF: 0 metoprolol succinate 25 mg tablet extended release 24 hr 25 mg PO DAILY RF: 0 fluoxetine 20 mg capsule 60 mg PO DAILY RF: 0 solifenacin 10 mg tablet 10 mg PO DAILY RF: 0 hydrochlorothiazide 12.5 mg tablet 12.5 mg PO DAILY RF: 0 cyanocobalamin (vitamin B-12) 1,000 mcg/mL solution 1,000 mcg subcut MONTHLY RF: 0 cholecalciferol (vitamin D3) 1,250 mcg (50,000 unit) capsule 1,250 mcg PO WEEKLY RF: 0 aspirin tablet 81 mg PO DAILY RF: 0 No Action levetiracetam 500 mg tablet 500 mg PO BID RF: 0 pregabalin 200 mg capsule 200 mg PO BID RF: 0 Date of admission: 11/20/20 03:19 Primary Care Provider: WING,REYES Admitting Provider: Larisa Guevara V. Attending physician on admission: Beau Mike Condition: Improved Quality VTE Prophylaxis VTE prophylaxis: mechanical ordered
[2020-11-23 05:29] LABS: Levetiracetam Keppra 12.3 mcg/mL (12.0-46.0)
== END 2020-11-21 16:30 | disposition home or self-care (01) ==
LOC: ANHED 03:28 → ANH3MEDSUR 04:29 → ANHICU 04:45 → ANH3MEDSUR 11-21 03:33
PROVIDERS: Internal Medicine; Admitting Provider Internal Medicine; Emergency Provider Emergency Medicine; PCP Nurse Practitioner Family; Visit Provider Emergency Medicine
DX: R56.9 Unspecified convulsions (principal); I10 Essential (primary) hypertension; E03.9 Hypothyroidism, unspecified; E78.5 Hyperlipidemia, unspecified; F31.9 Bipolar disorder, unspecified; F17.210 Nicotine dependence, cigarettes, uncomplicated
CPT/HCPCS: 36415; 70450; 80048; 80053; 80177; 81001; 83735; 84100; 84484; 85025; 85055; 93005; 96361; 96365; 96375; 96376; 99285; A9270; G0378; J1953; J2060; J7030; J7120

== ENCOUNTER 2020-12-10 04:33 | Emergency (ER) | payer MEDICARE, MEDICAID, SELFPAY ==
[2020-12-10] VITALS (53 sets, daily range): BP systolic 72–128; BP diastolic 46–92; PULSE 47–89; RESP 9–18; TEMP 36.7; O2SAT 80–100
--- NOTE | ~2020-12-10 | CT_ITS ---
EXAMINATION: CT cervical spine wo con DATE: 12/10/2020 06:55 INDICATION: Neck pain. Fall. TECHNIQUE: Computed tomography (CT) of the cervical spine was performed without intravenous contrast. Automated exposure control and iterative reconstruction technique were employed. The dose-length pro duct was 469.70 mGy-cm. COMPARISON: CT cervical spine 01/18/2018 FINDINGS: The visualized portions of the lung apices demonstrate posterior airspace opacities. There are small bilateral mastoid effusions. There is 2 mm retrolisthesis of C5 on C6. There is hypolordosi s of cervical spine. There is mild chronic anterior wedging of T1 vertebral body. There is mildly dec reased disc height at C4-C5 and severely decreased disc height at C5-C6 and C6-C7. The following disc levels are specifically discussed: C2-C3: There is mild bilateral uncovertebral joint osteoarthritis. There is no facet joint osteoarthr itis. There is no neural foraminal stenosis. There is no central canal stenosis. C3-C4: There is moderate bilateral uncovertebral joint osteoarthritis. There is moderate right and se merced left facet joint osteoarthritis. There is mild bilateral neural foraminal stenosis. There is mil d central canal stenosis. C4-C5: There is mild bilateral uncovertebral joint osteoarthritis. There is mild right and severe lef t facet joint osteoarthritis. There is mild left neural foraminal stenosis. There is mild central can al stenosis. C5-C6: There is severe bilateral uncovertebral joint osteoarthritis. There is mild bilateral facet tano int osteoarthritis. There is moderate right and mild left neural foraminal stenosis. There is mild ce ntral canal stenosis. C6-C7: There is severe bilateral uncovertebral joint osteoarthritis. There is severe bilateral facet joint osteoarthritis. There is mild bilateral neural foraminal stenosis. There is mild central canal stenosis. C7-T1: There is mild right uncovertebral joint osteoarthritis. There is mild bilateral facet joint os teoarthritis. There is mild right neural foraminal stenosis. There is no central canal stenosis. IMPRESSION: 1. No fracture. 2. Severe cervical spondylosis. Reviewed, dictated and finalized at [facility].
--- NOTE | ~2020-12-10 | XR_ITS ---
EXAMINATION: XR chest 1V portable EXAM DATE: 12/10/2020 08:54 INDICATION: Low oxygen saturation. TECHNIQUE: Portable AP frontal chest x-ray was obtained. Comparison is made to prior examination from 06/04/2018. FINDINGS: There is mild cardiomegaly and congestion. Some prominent bilateral peripheral reticulation has developed, could be developing edema or infection. No pneumothorax or pleural effusion. There ar e mild bony degenerative changes. IMPRESSION: Cardiomegaly. Development of abnormal reticulation. Consider edema or infection. Reviewed, dictated and finalized at location [facility].
--- NOTE | ~2020-12-10 | XR_ITS ---
EXAMINATION: XR wrist LT min 3V DATE: 12/10/2020 05:56 INDICATION: Left wrist deformity. TECHNIQUE: 4 views of left wrist were obtained. COMPARISON: None. FINDINGS: There is an oblique fracture of distal radial metaphysis without definite involvement of th e distal articular surface. The distal fracture fragment demonstrates 5 mm posterior displacement, im paction, and dorsal angulation. There is 28 degrees dorsal tilt of the distal articular surface. Ther e is an avulsion fracture of the ulnar styloid. Osteopenia is noted. There is mild osteoarthritis of first carpometacarpal joint. IMPRESSION: 1. Oblique fracture of distal radial metaphysis. 2. Avulsion fracture of the ulnar styloid. Reviewed, dictated and finalized at location A.
--- NOTE | ~2020-12-10 | XR_ITS ---
EXAMINATION: XR wrist LT 2V DATE: 12/10/2020 06:48 INDICATION: Distal left radius fracture status post reduction. TECHNIQUE: 2 views of left wrist on 3 radiographs were obtained. COMPARISON: Left wrist radiographs at 500 AM FINDINGS: There is an oblique fracture of distal radial metaphysis. The distal fracture fragment demo nstrates 5 mm radial displacement, 9 degrees radial angulation, 3 mm posterior displacement, and post erior angulation. There is 14 degrees dorsal tilt of the distal articular surface. There is an avulsi on fracture of ulnar styloid. There is mild osteoarthritis of first carpometacarpal joint. Osteopenia is noted. Cast material is noted. IMPRESSION: 1. Oblique fracture of distal radial metaphysis with improvement in alignment. 2. Avulsion fracture of the ulnar styloid. Reviewed, dictated and finalized at location A.
[2020-12-10] MEDS: SODIUM CHLORIDE 0.9% IV 1,000 ML 999 ML IV CONT ×2 (04:53→07:52)
[2020-12-10] MEDS: HYDROmorphone HCL INJ (*CRX) 1 MG/ML SYR 0.5 MG IV PUSH (04:55)
[2020-12-10] MEDS: ONDANSETRON INJ 4 MG/2 ML VIAL IV PUSH (04:55)
--- NOTE | 2020-12-10 06:24 | PC.NURSE ---
1 10 mg dose of etomidate given at 0607.
--- NOTE | 2020-12-10 06:35 | ED.FALL ---
HPI - Fall General Chief Complaint: Fall Stated Complaint: fell of chair backwards, lf wrist,neck,back pain Time Seen by Provider: 12/10/20 04:34 Source: patient Mode of arrival: ambulatory Limitations: no limitations History of Present Illness HPI Narrative: This is a 55 year old right hand dominant female who presents for evaluation left wrist fall and neck pain s/p fall. Patient reports chronic neck and back pain. She standing on a kitchen chair this morning trying to hang a picture, and she fell. She fell onto her left wrist trying to break her fall. She denies hitting her head. She does complain of neck pain. She denies being lightheaded or dizzy as the cause of her fall. She denies lower extremity pain or headache or LOC. Related Data Home Medications Medication Instructions Recorded Confirmed ergocalciferol (vitamin D2) 50,000 unit PO 12/05/19 unit tablet levothyroxine 125 mcg capsule 125 mcg PO DAILY 12/05/19 aspirin 81 mg PO DAILY 11/20/20 11/20/20 atorvastatin 10 mg PO HS 11/20/20 11/20/20 cholecalciferol (vitamin D3) 1,250 mcg PO WEEKLY 11/20/20 11/20/20 cyanocobalamin (vitamin B-12) 1,000 mcg SUBCUT MONTHLY 11/20/20 11/20/20 fluoxetine 60 mg PO DAILY 11/20/20 11/20/20 hydrochlorothiazide 12.5 mg PO DAILY 11/20/20 11/20/20 hydroxyzine HCl 25 mg PO TID PRN 11/20/20 11/20/20 levetiracetam 500 mg PO BID 11/20/20 11/20/20 levothyroxine 150 mcg PO QAM 11/20/20 11/20/20 meloxicam 7.5 mg PO BID 11/20/20 11/20/20 metoprolol succinate 25 mg PO DAILY 11/20/20 11/20/20 oxybutynin chloride 15 mg PO DAILY 11/20/20 11/20/20 potassium chloride 10 meq PO DAILY 11/20/20 11/20/20 pregabalin 200 mg PO BID 11/20/20 11/20/20 solifenacin 10 mg PO DAILY 11/20/20 11/20/20 Allergies Allergy/AdvReac Type Severity Reaction Status Date / Time No Known Allergies Allergy Verified 12/10/20 04:43 Review of Systems Review of Systems: All systems reviewed & are unremarkable except as noted in HPI and below PMFSH Past Medical History Medical History Arthritis Back pain Bipolar disorder Degenerative disc disease Depression Fibromyalgia Hypertension Hypothyroidism Seizure Family History Family History Mother Diabetes mellitus Alzheimer disease Father Lung cancer Social History Social History (System 11/24/20 @ 15:01 by Bozena Abdi) Smoking packs per day: 0.5 Smoking cigarettes per day: 10.0 Years smoked: 35 Smoking pack-years: 17.50 Smoking status: Never smoker Tobacco type: cigarettes Second hand tobacco smoke exposure: Yes Alcohol intake: never Substance use: current Substance use type: marijuana Other substance usage details: medical [facility] Gender identity (if verbalized by the patient): Female Spiritual care concerns: No Exam Const: General: no acute distress and alert Orientation/consciousness: patient oriented x3 Eyes: Pupils: Equal, round and reactive pupils present EOM: EOMs intact bilaterally Chest: Chest palpation & inspection: normal inspection of the chest Other: in c collar Resp: Effort & Inspection: normal respiratory effort and no retractions Auscultation: clear to auscultation bilaterally Cardio: Rate: regular rate Rhythm: regular rhythm Heart sounds: no murmurs GI: GI Palp: Yes Soft to palpation, No Tenderness to palpation present (GI) and No Guarding due to palpation present (GI) Auscultation: normal bowel sounds Neuro: General: patient oriented x3, moves all extremities and CN's II-XI intact bilaterally Extrem: Other: left wrist deformity with ecchymosis. able to move fingers distally Psych: Mental Status: mental status grossly normal Affect: normal affect Course Reevaluation(s) Reevaluation #1: PATient is wide awake. Able to ambulate with steady gait. She reports mild smokers cough. She denies chest pain or sob. Unlikely c
--- NOTE | 2020-12-10 07:06 | ECG_ITS ---
Measurements Intervals [place] Rate: 69 P: 37 CO: 187 QRS: 31 QRSD: 93 T: 43 QT: 405 QTc: 435 Interpretive Statements SINUS RHYTHM BASELINE ARTIFACT- I, II, III, AVR, AVL, AVF, V1 NORMAL ECG Electronically Signed On 12-10-2020 8:18:34 CDT by Gianfranco Barnett D.O.
[2020-12-10] MEDS: ATROPINE SULFATE 1 MG/10 ML SYRINGE 0.5 MG IV PUSH (07:54)
[2020-12-10] MEDS: GLUCAGON FOR INJ 1 MG VIAL 5 MG IV PUSH (08:11)
[2020-12-10] MEDS: WATER, STERILE FOR INJECTION 10 ML VIAL XX (08:12)
[2020-12-10 08:17] LABS: Basophils Absolute Auto 0.1 K/mm3 (0.0-0.1); Basophils Percent Auto 0.7 % (0.2-1.2); Eosinophils Absolute Auto 0.3 K/mm3 (0-0.3); Hematocrit 39.5 % (37.0-47.0); Hemoglobin 12.6 g/dL (12.0-15.0); Immature Granulocyte Absolute 0.03 K/mm3 (0.00-0.031); Immature Granulocyte Percent A 0.4 % (0-0.5); Immature Platelet Fraction Pct 14.8 % (0.9-11.2); Lymphocytes Absolute Auto 1.62 K/mm3 (0.9-3.2); Lymphocytes Percent Auto 21.1 % (18.3-44.2); Mean Corpuscular HGB Conc 31.9 g/dl (32-36); Mean Corpuscular Hemoglobin 29.9 pg (26-34); Mean Corpuscular Volume 93.8 fl (80-100); Mean Platelet Volume 13.1 fl (7.4-10.4); Monocytes Absolute Auto 0.6 K/mm3 (0.1-0.6); Monocytes Percent Auto 7.4 % (2.6-8.5); Neutrophils Absolute Auto 5.1 K/mm3 (1.3-6.7); Neutrophils Percent Auto 66.4 % (45.5-73.1); Platelet Count Result 138 k/mm3 (150-375); Red Blood Count 4.21 M/mm3 (4.2-5.4); Red Cell Distribution Width 13.9 % (11.5-14.5); White Blood Count 7.7 K/mm3 (4.5-10.0)
[2020-12-10 08:24] LABS: Alanine Aminotransferase 19 U/L (4-35); Albumin Level 3.7 g/dL (3.5-5.1); Alkaline Phosphatase 103 U/L (38-126); Anion Gap 7 mmol/L (8-16); Aspartate Amino Transferase 37 U/L (14-36); Bilirubin,Total 0.5 mg/dL (0.2-1.3); Blood Urea Nitrogen 15 mg/dL (7-17); Calcium 8.7 mg/dL (8.4-10.2); Carbon Dioxide 26 mmol/L (22-30); Chloride 106 mmol/L (98-107); Estimated CRCL calculation 72 ml/min; Estimated Glomerular Filt Rate > 60; Glucose 99 mg/dL (65-105); Potassium 3.9 mmol/L (3.4-5.0); Sodium 139 mmol/L (137-145)
--- NOTE | 2020-12-10 09:45 | PC.NURSE ---
pt ambulated without diffculty. pt dancing in hallway.
[2020-12-10 10:29] LABS: Thyroid Stimulating Hormone Reflex 0.017 uIU/mL (0.465-4.68)
[2020-12-10 10:58] LABS: Free T4 Free Thyroxine Reflex 2.11 ng/dL (0.78-2.19)
[2020-12-10 11:55] LABS: Total Triiodothyronine (T3) 1.15 NG/ML (0.97-1.69)
--- NOTE | 2020-12-10 19:39 | PC.NURSE ---
Spoke with patient per Dr. Verde request to re enforce that the patient needs to remove her remaining ring from the affected hand. Pt verbalized that they had been attempting to remove the ring at home without success. Pt informed of risk of not removing the ring due to increased swelling and informed the patient that she can return to have the ring removed if necessary. Pt verbalized understanding.
== END 2020-12-10 10:13 | disposition home or self-care (01) ==
PROVIDERS: Emergency Provider General Practice; PCP Nurse Practitioner Family
DX: S59.292A Other physeal fracture of lower end of radius, left arm, initial encounter for closed fracture (principal); S52.612A Displaced fracture of left ulna styloid process, initial encounter for closed fracture; M19.90 Unspecified osteoarthritis, unspecified site; M79.7 Fibromyalgia; I10 Essential (primary) hypertension; E03.9 Hypothyroidism, unspecified; Z79.82 Long term (current) use of aspirin; F31.9 Bipolar disorder, unspecified; F17.210 Nicotine dependence, cigarettes, uncomplicated; W07.XXXA Fall from chair, initial encounter
CPT/HCPCS: 25605; 36415; 71045; 72125; 73100; 73110; 80053; 84439; 84443; 84480; 85025; 85055; 93005; 96374; 96375; 99282; 99285; A4565; J0461; J1170; J1610; J2405; J7030

== ENCOUNTER 2020-12-10 23:22 | Emergency (ER) | payer MEDICARE, MEDICAID, SELFPAY ==
[2020-12-10 23:35] VITALS: BP 97/66; PULSE 53; RESP 18; TEMP 36.1; O2SAT 97
--- NOTE | 2020-12-11 00:43 | ED.GENADULT ---
HPI - General Adult General Chief complaint: Unspecified Stated complaint: ring on casted left hand Time Seen by Provider: 12/11/20 00:33 Source: patient Mode of arrival: ambulatory Limitations: no limitations History of Present Illness HPI narrative: pt is for ring removal , pt was seen yesterday and had fractured wrist was told to come to the ER for finger ring removal , pt states she tried to get it out but finger was swollen,pt also compalints of back pain ,shoulder pain from the time of fall. Onset (ago): day(s) (1) Location: upper extremity Radiation: non-radiation Severity: mild Quality: aching Relieving factors: none Exacerbating factors: none Associated symptoms: denies other symptoms Related Data Home Medications Medication Instructions Recorded Confirmed ergocalciferol (vitamin D2) 50,000 unit PO 12/05/19 unit tablet levothyroxine 125 mcg capsule 125 mcg PO DAILY 12/05/19 aspirin 81 mg PO DAILY 11/20/20 11/20/20 atorvastatin 10 mg PO HS 11/20/20 11/20/20 cholecalciferol (vitamin D3) 1,250 mcg PO WEEKLY 11/20/20 11/20/20 cyanocobalamin (vitamin B-12) 1,000 mcg SUBCUT MONTHLY 11/20/20 11/20/20 fluoxetine 60 mg PO DAILY 11/20/20 11/20/20 hydrochlorothiazide 12.5 mg PO DAILY 11/20/20 11/20/20 hydroxyzine HCl 25 mg PO TID PRN 11/20/20 11/20/20 levetiracetam 500 mg PO BID 11/20/20 11/20/20 levothyroxine 150 mcg PO QAM 11/20/20 11/20/20 meloxicam 7.5 mg PO BID 11/20/20 11/20/20 metoprolol succinate 25 mg PO DAILY 11/20/20 11/20/20 oxybutynin chloride 15 mg PO DAILY 11/20/20 11/20/20 potassium chloride 10 meq PO DAILY 11/20/20 11/20/20 pregabalin 200 mg PO BID 11/20/20 11/20/20 solifenacin 10 mg PO DAILY 11/20/20 11/20/20 Allergies Allergy/AdvReac Type Severity Reaction Status Date / Time No Known Allergies Allergy Verified 12/10/20 04:43 Review of Systems Review of Systems: All systems reviewed & are unremarkable except as noted in HPI and below Constitutional: Constitutional: Reports no additional constitutional complaints Eyes: Eyes: Reports no additional eye complaints ENT: Reports system reviewed and no additional complaints, except as documented Cardiovascular: Cardiovascular: Reports no additional cardiovascular complaints Respiratory: Respiratory: Reports no additional respiratory complaints Gastrointestinal: Gastrointestinal: Reports no additional gastrointestinal complaints Musculoskeletal: Musculoskeletal: Reports as per HPI [facility] Past Medical History Medical History Arthritis Back pain Bipolar disorder Degenerative disc disease Depression Fibromyalgia Hypertension Hypothyroidism Seizure Family History Family History Mother Diabetes mellitus Alzheimer disease Father Lung cancer Mother Family history of diabetes mellitus in first degree relative Family history of dementia, Onset Age: 82 Patient's mother is Diabetes mellitus Social History Social History (System 11/24/20 @ 15:01 by Bozena Abdi) Smoking packs per day: 0.5 Smoking cigarettes per day: 10.0 Years smoked: 35 Smoking pack-years: 17.50 Smoking status: Never smoker Tobacco type: cigarettes Second hand tobacco smoke exposure: Yes Alcohol intake: never Substance use: current Substance use type: marijuana Other substance usage details: [facility] Gender identity (if verbalized by the patient): Female Spiritual care concerns: No Exam Narrative: Exam Narrative: GENERAL: Well-appearing, well-nourished, and in no acute distress. HEAD: Normocephalic, atraumatic. EYES: PERRLA and EOMI. NECK: Supple. CHEST: Clear to auscultation. No respiratory distress. HEART: Regular rate and rhythm. No murmur heard. Normal peripheral pulses.. EXTREMITIES: Normal range of motion. left forearm in a splint , finger ring is present on the middle finger ,it is swoll
[2020-12-11 01:09] VITALS: BP 85/71; PULSE 48; RESP 16; O2SAT 97
--- NOTE | 2020-12-11 01:20 | PC.NURSE ---
EDP made aware of abnormal VS. Pt A&Ox4 resting comfortably on stretcher. Pt denies any symptoms at this time. EDP okayed fro discharge.
== END 2020-12-11 01:30 | disposition home or self-care (01) ==
LOC: ANHED 12-11 01:19
PROVIDERS: Emergency Provider Family Medicine; PCP Nurse Practitioner Family
DX: S60.443A External constriction of left middle finger, initial encounter (principal); S62.102D Fracture of unspecified carpal bone, left wrist, subsequent encounter for fracture with routine healing; M19.90 Unspecified osteoarthritis, unspecified site; M79.7 Fibromyalgia; E03.9 Hypothyroidism, unspecified; I10 Essential (primary) hypertension; Z79.82 Long term (current) use of aspirin; F31.9 Bipolar disorder, unspecified; F17.210 Nicotine dependence, cigarettes, uncomplicated; W49.04XA Ring or other jewelry causing external constriction, initial encounter; X58.XXXD Exposure to other specified factors, subsequent encounter
CPT/HCPCS: 99282

== ENCOUNTER 2020-12-16 11:18 | Outpatient (CLI) | payer MEDICARE, MEDICAID, SELFPAY ==
[2020-12-16 13:29] LABS: Vitamin D 25 Hydroxy 89.8 ng/mL
== END 2020-12-16 11:19 | disposition home or self-care (01) ==
PROVIDERS: PCP Nurse Practitioner Family; Visit Provider Orthopaedic Surgery
DX: E55.9 Vitamin D deficiency, unspecified (principal)
CPT/HCPCS: 36415; 82306

== ENCOUNTER 2021-04-15 14:50 | Outpatient (CLI) | payer MEDICARE, MEDICAID, SELFPAY ==
--- NOTE | ~2021-04-15 | CT_ITS ---
EXAMINATION: CT lung screening DATE: 04/15/2021 15:13 INDICATION: HX OF NICOTINE DEPENDENCE TECHNIQUE: Computed tomography (CT) of the chest was performed without intravenous contrast. Addition al 3D reconstructions utilizing coronal maximum intensity projection (MIP) were performed. Automated exposure control and iterative reconstruction technique were employed. The dose-length product was 11 2.39 mGy-cm. COMPARISON: None FINDINGS: Minimal emphysema. Dependent atelectasis with gradient of posterior predominant groundglass opacities in the bilateral lower lobes and to a lesser degree right upper lobe. Small focus of linear discoid atelectasis at the left apex. 3-4 mm right middle lobe nodule. No pleural effusion. Heart size is nor mal. Small amount of atherosclerotic calcification at the proximal left anterior descending coronary artery. Small amount of aortic valve calcific location. Thoracic aorta is normal in caliber. No patho logically enlarged thoracic lymphadenopathy. Cholecystectomy clips the gallbladder fossa. Mild lower thoracic dextrocurvature with mild spondylosis. Chronic appearing mild left-sided vertebral body heig ht loss at T8. IMPRESSION: 1. Lung-RADS category 2: Benign appearance or behavior. Continue annual screening with noncontrast lo w-dose chest CT in 12 months. Reviewed, dictated and finalized at location A. DEVELOPER IMPRESSION: 1. Lung-RADS category 2: Benign appearance or behavior. Continue annual screeni ng with noncontrast low-dose chest CT in 12 months.
== END 2021-04-15 14:51 | disposition home or self-care (01) ==
LOC: ANHIMG 14:54
PROVIDERS: PCP Nurse Practitioner Family; Visit Provider Nurse Practitioner Family
DX: F17.210 Nicotine dependence, cigarettes, uncomplicated (principal)
CPT/HCPCS: 71271

== ENCOUNTER → 2021-09-15 08:46 | Outpatient (CLI) | payer MEDICARE, MEDICAID, SELFPAY ==
--- NOTE | ~2021-09-15 | US_ITS ---
EXAMINATION: US pelvic complete w TV EXAM DATE: 09/15/2021 10:54 INDICATION: Pelvic Pain . Hysterectomy, left oophorectomy. TECHNIQUE: Pelvic transabdominal and transvaginal sonogram was performed. There are multiple graysca le and Doppler images available for interpretation. There is no prior study for comparison. FINDINGS: The uterus is not identified. The vaginal cuff unremarkable on transvaginal imaging. No adn exal mass was identified. Bladder is unremarkable. IMPRESSION: Uterus, ovaries not identified. Reviewed, dictated and finalized at location A.
--- NOTE | ~2021-09-15 | MMUS_ITS ---
EXAMINATION: MM diagnostic adia BI w sydni, US breast RT limited HISTORY: 9:00 right breast lump. Patient states lump is been there for a couple of years. TECHNIQUE: Full field and spot ML, MLO and craniocaudal 3-D tomosynthesis images of the right breast were performed and synthetic 2-D images were generated. CAD analysis was submitted and interpreted. H igh resolution targeted 9:00 right breast ultrasound was performed. COMPARISON: 08/26/2020 bilateral screening mammogram and limited right breast ultrasound BREAST PARENCHYMAL COMPOSITION: There are scattered areas of fibroglandular density. FINDINGS: MAMMOGRAPHIC FINDINGS: No suspicious mass or architectural distortion, malignant calcification, skin thickening or retractio n or significant new or developing density is detected. ULTRASOUND: 9:00 5 cm from nipple: Parallel circumscribed hypoechoic area measures 2 x 3.2 mm currently compared to to 1.8 x 4.9 mm on 08/26/2020. The margins are circumscribed. No suspicious posterior shadowing. IMPRESSION: 1. Benign finding 2. Routine annual mammographic screening is recommended. BI-RADS Category 2: Benign finding(s). Reviewed, dictated and finalized at location A. IMPRESSION: 1. Benign finding 2. Routine annual mammographic screening is recommended. BI-RADS Category 2: Benign finding(s).
== END ==
PROVIDERS: Visit Provider Nurse Practitioner Family
DX: N63.11 Unspecified lump in the right breast, upper outer quadrant (principal); R10.2 Pelvic and perineal pain
CPT/HCPCS: 76642; 76830; 76856; 77062; 77066; G0279

== ENCOUNTER 2021-10-08 05:30 | Emergency (ER) | payer MEDICARE, MEDICAID, SELFPAY ==
--- NOTE | ~2021-10-08 | XR_ITS ---
EXAMINATION: XR ankle LT min 3V DATE: 10/08/2021 06:16 INDICATION: Left ankle pain TECHNIQUE: Anteroposterior, lateral, mortise, and additional oblique view of the ankle were obtained. COMPARISON: 04/01/2004 FINDINGS: There is soft tissue swelling of the ankle and foot. Bone alignment is normal. There is no fracture. IMPRESSION: 1. Soft tissue swelling without acute osseous abnormality. Reviewed, dictated and finalized at location A.
--- NOTE | ~2021-10-08 | XR_ITS ---
EXAMINATION: XR tibia fibula LT 2V INDICATION: Leg pain TECHNIQUE: Two views of the left tibia and fibula are obtained on three radiographs COMPARISON: None available FINDINGS: There is no fracture, dislocation, or subluxation. The bones and joint spaces are normal. S oft tissue swelling is noted at the ankle. IMPRESSION: 1. No acute osseous abnormality. Reviewed, dictated and finalized at location A.
[2021-10-08 05:32] VITALS: BP 109/73; PULSE 61; RESP 14; TEMP 36.9; O2SAT 97
--- NOTE | 2021-10-08 05:53 | ED.FALL ---
HPI - Fall General Chief Complaint: Fall Stated Complaint: Fall, L Leg pain Time Seen by Provider: 10/08/21 05:40 Source: RN notes reviewed History of Present Illness HPI Narrative: Patient presents emergency department from home via EMS for fall. Patient states that approximately 1 AM this morning she was walking up her stairs when she slipped and fell she states that she fell forward up the stairs injuring her left lateral leg she states since that time she had pain in her left lateral ankle as well as her lower leg she denies striking her head or any loss of consciousness she denies any other trauma or injury states she has been able to walk on the leg. She states she has had some redness and swelling to the legs at times she states she not taking thing for pain Related Data Home Medications Medication Instructions Recorded Confirmed ergocalciferol (vitamin D2) 50,000 unit PO 12/05/19 unit tablet aspirin 81 mg PO DAILY 11/20/20 11/20/20 atorvastatin 10 mg PO HS 11/20/20 11/20/20 cholecalciferol (vitamin D3) 1,250 mcg PO WEEKLY 11/20/20 11/20/20 cyanocobalamin (vitamin B-12) 1,000 mcg SUBCUT MONTHLY 11/20/20 11/20/20 fluoxetine 60 mg PO DAILY 11/20/20 11/20/20 hydrochlorothiazide 12.5 mg PO DAILY 11/20/20 11/20/20 hydroxyzine HCl 25 mg PO TID PRN 11/20/20 11/20/20 levothyroxine 150 mcg PO QAM 11/20/20 11/20/20 meloxicam 7.5 mg PO BID 11/20/20 11/20/20 metoprolol succinate 25 mg PO DAILY 11/20/20 11/20/20 oxybutynin chloride 15 mg PO DAILY 11/20/20 11/20/20 potassium chloride 10 meq PO DAILY 11/20/20 11/20/20 pregabalin 200 mg PO BID 11/20/20 11/20/20 Allergies Allergy/AdvReac Type Severity Reaction Status Date / Time No Known Allergies Allergy Verified 10/08/21 05:35 Review of Systems Review of Systems: Gen.: Denies fevers or chills Musculoskeletal: See HPI Neuro: Denies numbness, tingling, weakness Skin: Denies rash Endo: Denies DM PMFSH Past Medical History Medical History Anxiety Arthritis Back pain Bipolar disorder Degenerative disc disease Depression Fibromyalgia Hypertension Hypothyroidism Memory loss Rheumatic fever as a child Seizure Trichomonas vaginalis (TV) infection (01/14/17) Surgical History Surgical History (Updated 09/21/21 @ 10:13 by Jeannie Sims Gabby) History of (03/18/96) History of cholecystectomy (~2015) History of hysterectomy, supracervical (~06/2007) uterine fibroids History of left salpingo-oophorectomy (~06/2008) History of surgery on wrist (~09/27/20) left wrist broken plates and pins placed History of tubal ligation (03/28/96) Family History Family History Mother Diabetes mellitus Alzheimer disease Alcohol abuse Father Lung cancer Hypertension Alcohol abuse Mother Family history of diabetes mellitus in first degree relative Family history of dementia, Onset Age: 82 Patient's mother is Social History Social History Smoking packs per day: 0.5 Smoking cigarettes per day: 10.0 Years smoked: 35 Smoking pack-years: 17.50 Smoking status: Current every day smoker Tobacco type: cigarettes Second hand tobacco smoke exposure: Yes Alcohol intake: never Substance use: current Substance use type: marijuana Other substance usage details: [facility] Additional occupation/education comments: disabled Gender identity (if verbalized by the patient): Female Sexual Orientation (if Verbalized by the Patient): Straight or Heterosexual Spiritual care concerns: No Exam Narrative: APPEARANCE: No acute distress, nontoxic, resting in bed Eyes: EOMI HEENT: Normocephalic, atraumatic, RESPIRATORY: No respiratory distress MUSCULOSKELETAl: Tender palpation over the left lateral and anterior ankle with mild swelling present no tenderness over t
[2021-10-08] MEDS: IBUPROFEN 600 MG TABLET PO (06:09)
[2021-10-08 06:41] LABS: Basophils Absolute Auto 0.1 K/mm3 (0.0-0.1); Eosinophils Absolute Auto 0.3 K/mm3 (0-0.3); Eosinophils Percent Auto 4.1 % (0-4.4); Hematocrit 38.4 % (37.0-47.0); Hemoglobin 12.1 g/dL (12.0-15.0); Immature Granulocyte Absolute 0.02 K/mm3 (0.00-0.031); Immature Granulocyte Percent A 0.2 % (0-0.5); Lymphocytes Absolute Auto 1.85 K/mm3 (0.9-3.2); Mean Corpuscular HGB Conc 31.5 g/dl (32-36); Mean Corpuscular Hemoglobin 29.3 pg (26-34); Mean Platelet Volume 12.5 fl (7.4-10.4); Monocytes Absolute Auto 0.8 K/mm3 (0.1-0.6); Monocytes Percent Auto 10.1 % (2.6-8.5); Neutrophils Percent Auto 61.6 % (45.5-73.1); Platelet Count Result 151 k/mm3 (150-375); Red Blood Count 4.13 M/mm3 (4.2-5.4); Red Cell Distribution Width 14.1 % (11.5-14.5); White Blood Count 8.1 K/mm3 (4.5-10.0)
[2021-10-08 07:01] VITALS: BP 105/64; PULSE 60; RESP 16; O2SAT 97
== END 2021-10-08 07:03 | disposition home or self-care (01) ==
PROVIDERS: Emergency Provider Emergency Medicine; PCP Nurse Practitioner Family
DX: S93.402A Sprain of unspecified ligament of left ankle, initial encounter (principal); I10 Essential (primary) hypertension; E03.9 Hypothyroidism, unspecified; F17.210 Nicotine dependence, cigarettes, uncomplicated; W10.9XXA Fall (on) (from) unspecified stairs and steps, initial encounter
CPT/HCPCS: 36415; 73590; 73610; 85025; 99284; A9270

== ENCOUNTER 2022-08-19 13:11 | Emergency (ER) | payer MEDICARE, MEDICAID, SELFPAY ==
[2022-08-19] VITALS (17 sets, daily range): BP systolic 115–156; BP diastolic 62–92; PULSE 52–68; RESP 10–21; TEMP 36.1; O2SAT 94–100
--- NOTE | ~2022-08-19 | CT_ITS ---
EXAMINATION: CT abdomen pelvis w con DATE: 08/19/2022 17:42 INDICATION: Right lower quadrant abdominal pain for 3 days. Nausea and vomiting. TECHNIQUE: Computed tomography (CT) of the abdomen and pelvis was performed with 100 CC Omnipaque 350 intravenous contrast. Automated exposure control and iterative reconstruction technique were employe d. Exam dose: 1175.97 mGy-cm total exam DLP. COMPARISON: 10/16/2017 CT abdomen pelvis FINDINGS: Minimal dependent lower lobe atelectasis, right greater than left. Heart size is within normal range. No pericardial or pleural effusion. Status post cholecystectomy.. No hepatic space-occupying mass lesion or significant change since 10/16. No bile duct or pancreatic duct dilatation. No pancreatic mass lesion or calcification. Normal splenic size. Normal morphology of the adrenal glands. No renal mass lesion or urinary tract calculus or hydroureteronephrosis. Moderate diffuse thickening of the urinary bladder wall and mild perivesical fat stranding; cannot exclude cystitis. The uterus a nd adnexal areas are unremarkable. There is atherosclerotic calcification but normal caliber of the abdominal aorta. No intraperitoneal or retroperitoneal or pelvic mass lesion or adenopathy or ascites. No bowel obstruction or intraperitoneal free air. There is submucosal fat in the colon wall which may be secondary to chronic inflammatory change. No evidence of appendicitis. Small fat-containing umbilical hernia. Mild anterior wedge likely chronic compression fracture of L2. Multilevel degenerative disc disease, particularly severe at T12-L1, L1-2, especially severe at L2-3, also involving L4-5. No suspicious osteolytic or osteoblastic lesions are noted. IMPRESSION: No evidence of appendicitis Urinary bladder wall thickening and mild perivesical fat stranding; cannot exclude cystitis Status post cholecystectomy Reviewed, dictated and finalized at Location A. Reviewed, dictated and finalized at location A. IMPRESSION: No evidence of appendicitis Urinary bladder wall thickening and mild perivesical fat stranding; cannot excl ude cystitis Status post cholecystectomy
--- NOTE | ~2022-08-19 | CT_ITS ---
EXAMINATION: CT brain wo con DATE: 08/19/2022 17:41 INDICATION: Seizure. Patient fell a few days ago. TECHNIQUE: Computed tomography (CT) of the head was performed without intravenous contrast. The mA wa s adjusted according to patient size. Iterative reconstruction technique was employed. Exam dose: 60 5.33 mGy-cm total exam DLP. COMPARISON: 11/16/2020 CT brain FINDINGS: Bilateral carotid siphon internal carotid artery calcifications. No intracranial mass lesion or hemorrhage or cerebrovascular accident. No midline shift or mass effec t effect. Normal ventricular size. No subdural or epidural hematoma. Mastoid air cells and included paranasal sinuses are unremarkable. No fracture or bone destruction of the cranial vault. IMPRESSION: No skull fracture or acute intracranial abnormality Cerebral atherosclerosis Reviewed, dictated and finalized at Location A. Reviewed, dictated and finalized at location A.
--- NOTE | 2022-08-19 13:38 | ECG_ITS ---
Measurements Intervals [place] Rate: 60 P: 35 NM: 135 QRS: 32 QRSD: 80 T: 35 QT: 410 QTc: 412 Interpretive Statements SINUS RHYTHM EARLY PRECORDIAL R/S TRANSITION NONSPECIFIC ST & T-WAVE ABNORMALITY- ANTEROLATERAL LEADS BASELINE ARTIFACT- I, II, III, AVR, AVL BORDERLINE ECG COMPARED TO ECG 12/10/2020 08:04:14 ST-T WAVE ABNORMALITY NOW PRESENT Electronically Signed On 08-19-2022 13:55:36 CDT by Gianfranco Barnett D.O.
[2022-08-19 13:54] LABS: Basophils Absolute Auto 0.1 K/mm3 (0.0-0.1); Basophils Percent Auto 0.8 % (0.2-1.2); Eosinophils Absolute Auto 0.1 K/mm3 (0-0.3); Hemoglobin 15.6 g/dL (12.0-15.0); Immature Granulocyte Absolute 0.02 K/mm3 (0.00-0.031); Immature Granulocyte Percent A 0.3 % (0-0.5); Lymphocytes Absolute Auto 1.37 K/mm3 (0.9-3.2); Lymphocytes Percent Auto 17.9 % (18.3-44.2); Mean Corpuscular HGB Conc 32.5 g/dl (32-36); Mean Corpuscular Hemoglobin 30.8 pg (26-34); Mean Corpuscular Volume 94.7 fl (80-100); Mean Platelet Volume 11.8 fl (7.4-10.4); Monocytes Absolute Auto 0.4 K/mm3 (0.1-0.6); Monocytes Percent Auto 5.7 % (2.6-8.5); Neutrophils Absolute Auto 5.7 K/mm3 (1.3-6.7); Neutrophils Percent Auto 74.3 % (45.5-73.1); Platelet Count Result 208 k/mm3 (150-375); Red Blood Count 5.07 M/mm3 (4.2-5.4); Red Cell Distribution Width 14.4 % (11.5-14.5); White Blood Count 7.7 K/mm3 (4.5-10.0)
[2022-08-19 14:08] LABS: Alanine Aminotransferase 20 U/L (6-35); Albumin Level 4.6 g/dL (3.5-5.1); Alkaline Phosphatase 130 U/L (38-126); Anion Gap 10 mmol/L (8-16); Aspartate Amino Transferase 27 U/L (14-36); Bilirubin,Total 0.8 mg/dL (0.2-1.3); Blood Urea Nitrogen 14 mg/dL (7-17); Calcium 9.6 mg/dL (8.4-10.2); Carbon Dioxide 22 mmol/L (22-30); Chloride 107 mmol/L (98-107); Estimated CRCL calculation 62 ml/min; Estimated Glomerular Filt Rate > 60; Glucose 144 mg/dL (65-110); Potassium 3.9 mmol/L (3.4-5.0); Sodium 139 mmol/L (137-145)
--- NOTE | 2022-08-19 17:03 | PC.NURSE ---
Patient states she did not take her seizure medication for a couple days because she has been vomiting and having bloody stools.
--- NOTE | 2022-08-19 17:11 | PC.NURSE ---
Patient also complains of abdominal pain for a few days
--- NOTE | 2022-08-19 17:18 | ED.GENADULT ---
HPI - General Adult General Chief complaint: Unspecified Stated complaint: feel like going to have seizure Time Seen by Provider: 08/19/22 16:58 Source: patient Mode of arrival: ambulatory Limitations: no limitations History of Present Illness HPI narrative: Patient is a 57-year-old female who presents the ED with multiple complaints. Patient reports she has not felt well for the last 4-5 days. She has a history of a seizure disorder and states she has not taken her Keppra for the last 3 to 4 days. She is supposed to take 500 mg twice daily. Neurologist = Dr. Manuel Wilburn. She is unable to provide a reason why she has not taken her medication. She feels somewhat lightheaded and is concerned she is about to have a seizure. She states her last seizure was a few days ago while laying in bed. She states this episode was unwitnessed. She states she could just tell she had one. Patient also reports having nausea, vomiting, intermittent bright red rectal bleeding, right lower quadrant abdominal pain, subjective fevers, sweats. Denies diarrhea, constipation. She states she does occasionally strain to have a bowel movement. Reports history of hemorrhoids. States blood is mixed in with the formed stool. She has not tried anything for pain. Denies any documented fever. Denies cough or cold symptoms, recent sick contacts. Related Data Home Medications Medication Instructions Recorded Confirmed ergocalciferol (vitamin D2) 50,000 unit PO 12/05/19 unit tablet aspirin 81 mg PO DAILY 11/20/20 11/20/20 atorvastatin 10 mg tablet 10 mg PO HS 11/20/20 11/20/20 cholecalciferol (vitamin D3) 1,250 1,250 mcg PO WEEKLY 11/20/20 11/20/20 mcg (50,000 unit) capsule cyanocobalamin (vitamin B-12) 1,000 mcg subcut MONTHLY 11/20/20 11/20/20 1,000 mcg/mL injection solution fluoxetine 20 mg capsule 60 mg PO DAILY 11/20/20 11/20/20 hydrochlorothiazide 12.5 mg tablet 12.5 mg PO DAILY 11/20/20 11/20/20 hydroxyzine HCl 25 mg tablet 25 mg PO TID PRN Itching 11/20/20 11/20/20 levothyroxine 150 mcg tablet 150 mcg PO QAM 11/20/20 11/20/20 meloxicam 7.5 mg tablet 7.5 mg PO BID 11/20/20 11/20/20 metoprolol succinate 25 mg 25 mg PO DAILY 11/20/20 11/20/20 tablet,extended release 24 hr oxybutynin chloride 15 mg 15 mg PO DAILY 11/20/20 11/20/20 tablet,extended release 24 hr potassium chloride 10 mEq 10 meq PO DAILY 11/20/20 11/20/20 tablet,extended release pregabalin 200 mg capsule 200 mg PO BID 11/20/20 11/20/20 Allergies Allergy/AdvReac Type Severity Reaction Status Date / Time No Known Allergies Allergy Verified 10/08/21 05:35 Review of Systems Review of Systems: CONSTITUTIONAL: See HPI. ENT: Denies rhinorrhea, congestion, sore throat. CARDIOVASCULAR: Denies chest pain. RESPIRATORY: Denies cough or dyspnea. GASTROINTESTINAL: See HPI. GENITOURINARY: Denies dysuria or hematuria. SKIN: Denies rash or itching. MUSCULOSKELETAL: Denies back pain, joint pain, or myalgia. NEUROLOGIC: See HPI. All systems reviewed & are unremarkable except as noted in HPI and below PMFSH Past Medical History Medical History Anxiety Arthritis Back pain Bipolar disorder Degenerative disc disease Depression Fibromyalgia Hypertension Hypothyroidism Memory loss Rheumatic fever as a child Seizure Trichomonas vaginalis (TV) infection (01/14/17) Surgical History Surgical History History of (03/18/96) History of cholecystectomy (~2015) History of hysterectomy, supracervical (~06/2007) uterine fibroids History of left salpingo-oophorectomy (~06/2008) History of surgery on wrist (~09/27/20) left wrist broken plates and pins placed History of tubal ligation (03/28/96) Family History Family History Mother Diabetes mellitus Alzheimer disease Alcohol abus
[2022-08-19] MEDS: ONDANSETRON INJ 4 MG/2 ML VIAL IV PUSH (17:54)
[2022-08-19] MEDS: SODIUM CHLORIDE 0.9% IV 1,000 ML 999 ML IV CONT ×3 (17:54→22:10)
[2022-08-19 19:23] LABS: Amphetamine Screen Urine Negative (Negative); Barbiturate Screen Urine Negative (Negative); Benzodiazepines Screen Urine Negative (Negative); Cannabinoid Screen Urine Positive (Negative); Cocaine Screen Urine Negative (Negative); Methadone Screen Urine Negative (Negative); Opiate Screen Urine Negative (Negative); Phencyclidine Screen Urine Negative (Negative)
[2022-08-19 19:26] LABS: Appearance Urine Clear (Clear); Bacteria Urine None Seen /hpf; Bilirubin Urine Negative (Negative); Blood Urine 3+ (Negative); Color Urine Yellow (Yellow); Glucose Urine UA Negative (Negative); Ketones Urine 1+ mg/dL (Negative); Leukocyte Esterase Ur Negative LEU/UL (Negative); Need Manual Microscopic Reviewed; Nitrate Urine Negative (Negative); Non Pathogenic Casts 0-2; Protein Urine 1+ mg/dL (Negative); Specific Grav Ur >= 1.099 (1.001-1.035); Squamous Epithelial Cell Urine Few /hpf (Few); WBC Urine 0-5 /hpf; pH Urine 5.5 (5.0-9.0)
[2022-08-19 19:27] LABS: Add Urine Microscopic? YES
[2022-08-19 19:32] LABS: Influenza A QL RT-PCR Negative (Negative); Influenza B QL RT-PCR Negative (Negative); SARS-CoV-2 RNA PCR Negative
--- NOTE | 2022-09-20 09:26 | PC.NURSE ---
LATE ENTRY This note is being entered to document information to the patient's record. The following information was omitted on [08/19/22], by [Benita Hernandez RN]. NS stop time of 2300.
== END 2022-08-19 22:52 | disposition home or self-care (01) ==
PROVIDERS: Emergency Medicine; Emergency Provider Physician Assistant; PCP Nurse Practitioner Family
DX: R11.2 Nausea with vomiting, unspecified (principal); R10.31 Right lower quadrant pain; K62.5 Hemorrhage of anus and rectum; G40.909 Epilepsy, unspecified, not intractable, without status epilepticus; T42.6X6A Underdosing of other antiepileptic and sedative-hypnotic drugs, initial encounter; Z91.128 Patient's intentional underdosing of medication regimen for other reason; Z20.822 Contact with and (suspected) exposure to COVID-19; I10 Essential (primary) hypertension; E03.9 Hypothyroidism, unspecified; M19.90 Unspecified osteoarthritis, unspecified site; M79.7 Fibromyalgia; F41.9 Anxiety disorder, unspecified; F31.9 Bipolar disorder, unspecified; Z90.49 Acquired absence of other specified parts of digestive tract; Z90.710 Acquired absence of both cervix and uterus; Z90.721 Acquired absence of ovaries, unilateral; Z90.79 Acquired absence of other genital organ(s); F17.210 Nicotine dependence, cigarettes, uncomplicated; Z79.82 Long term (current) use of aspirin; I67.2 Cerebral atherosclerosis; R93.41 Abnormal radiologic findings on diagnostic imaging of renal pelvis, ureter, or bladder; R94.31 Abnormal electrocardiogram [ECG] [EKG]
CPT/HCPCS: 36415; 70450; 74177; 80053; 80307; 81001; 85025; 87636; 93005; 96374; 96375; 99284; J1953; J2405; J7030; Q9967

== ENCOUNTER 2022-09-16 14:41 | Emergency (ER) | payer MEDICARE, MEDICAID, SELFPAY ==
--- NOTE | ~2022-09-16 | XR_ITS ---
XR chest 2V 09/16/2022 15:32 Indication: Chest pain. Smoker. Hypertension. Procedure: PA and lateral views of the chest Comparison: 12/10/2020 Findings: There are bilateral interstitial infiltrates of the mid and lower lungs. Borderline heart s ize. No pleural effusion or pneumothorax. No acute osseous abnormality. Impression: 1: Bilateral interstitial infiltrates of the mid and lower lungs which may reflect edema or pneumonia . Reviewed, dictated and finalized at location A. Impression: 1: Bilateral interstitial infiltrates of the mid and lower lungs which may refl ect edema or pneumonia.
--- NOTE | 2022-09-16 14:42 | ECG_ITS ---
Measurements Intervals [place] Rate: 74 P: 31 IN: 134 QRS: 38 QRSD: 90 T: -45 QT: 414 QTc: 461 Interpretive Statements SINUS RHYTHM ST DEVIATION AND MODERATE T-WAVE ABNORMALITY, CONSIDER ANTEROLATERAL ISCHEMIA [-0.1+ mV T WAVE IN V3-V6] ST DEVIATION AND MODERATE T-WAVE ABNORMALITY, CONSIDER INFERIOR ISCHEMIA [-0.1+ mV T WAVE IN II/aVF] COMPARED TO ECG 08/19/2022 13:45:59 T WAVE ABNORMALITY NOW PRESENT Electronically Signed On 09-16-2022 18:37:08 CDT by Thanh Meyer M.D.
[2022-09-16 14:49] VITALS: BP 105/81; PULSE 84; RESP 16; TEMP 36.2; O2SAT 96
[2022-09-16 15:13] LABS: Basophils Absolute Auto 0.1 K/mm3 (0.0-0.1); Eosinophils Absolute Auto 0.2 K/mm3 (0-0.3); Eosinophils Percent Auto 1.9 % (0-4.4); Immature Granulocyte Absolute 0.05 K/mm3 (0.00-0.031); Immature Granulocyte Percent A 0.5 % (0-0.5); Immature Platelet Fraction Pct 15.7 % (0.9-11.2); Lymphocytes Absolute Auto 2.02 K/mm3 (0.9-3.2); Lymphocytes Percent Auto 21.1 % (18.3-44.2); Mean Corpuscular HGB Conc 33.3 g/dl (32-36); Mean Corpuscular Hemoglobin 30.7 pg (26-34); Mean Platelet Volume 13.2 fl (7.4-10.4); Monocytes Percent Auto 10.6 % (2.6-8.5); Neutrophils Absolute Auto 6.2 K/mm3 (1.3-6.7); Neutrophils Percent Auto 64.9 % (45.5-73.1); Platelet Count Result 175 k/mm3 (150-375); Red Blood Count 5.22 M/mm3 (4.2-5.4); Red Cell Distribution Width 13.7 % (11.5-14.5); White Blood Count 9.6 K/mm3 (4.5-10.0)
[2022-09-16 15:25] LABS: Alanine Aminotransferase 27 U/L (6-35); Albumin Level 5.1 g/dL (3.5-5.1); Alkaline Phosphatase 117 U/L (38-126); Anion Gap 12 mmol/L (8-16); Aspartate Amino Transferase 28 U/L (14-36); Blood Urea Nitrogen 22 mg/dL (7-17); Calcium 9.9 mg/dL (8.4-10.2); Carbon Dioxide 25 mmol/L (22-30); Chloride 104 mmol/L (98-107); Estimated CRCL calculation 53 ml/min; Estimated Glomerular Filt Rate 46; Glucose 111 mg/dL (65-110); Lipase 71 U/L (23-300); Potassium 3.8 mmol/L (3.4-5.0); Sodium 141 mmol/L (137-145)
[2022-09-16 15:26] LABS: Partial Thromboplastin Time 27.3 SECONDS (22.3-36.8); Prothrombin Time 12.6 Seconds (11.1-14.7)
[2022-09-16 15:36] LABS: Troponin I 0.013 ng/mL (0.000-0.034)
[2022-09-16 16:30] VITALS: BP 110/77; PULSE 76; RESP 18; TEMP 36.3; O2SAT 97
== END 2022-09-16 17:35 | disposition left against medical advice (07) ==
PROVIDERS: Emergency Provider Emergency Medicine; PCP Nurse Practitioner Family
DX: R07.9 Chest pain, unspecified (principal)
CPT/HCPCS: 36415; 71046; 80053; 83690; 84484; 85025; 85055; 85610; 85730; 93005; 99199

== ENCOUNTER 2022-11-22 00:23 | Day surgery (SDC) | payer MEDICARE, MEDICAID, SELFPAY ==
[2022-11-11 08:23] VITALS: BMI 34.4
[2022-11-22 11:24] VITALS: BP 140/92; PULSE 76; RESP 18; TEMP 36.1; O2SAT 99
[2022-11-22] MEDS: LACTATED RINGERS 1,000 ML 150 ML IV CONT (11:25)
--- NOTE | 2022-11-22 11:26 | PM.HPGS ---
History of Present Illness History of Present Illness Consent: Risks, benefits, and alternatives have been discussed and questions answered. Patient agrees to proceed with procedure. Chief complaint: neoplasm screening Narrative: Juanita Dunbar is a 57 year old female with colon polyp. Review of Systems Constitutional: Constitutional: Denies headache(s) and Denies weakness Eyes: Eyes: Denies blurry vision ENT: Reports Normal hearing present, Denies headache(s) and Denies neck pain Cardiovascular: Cardiovascular: Denies chest pain and Denies dyspnea Respiratory: Respiratory: Denies dyspnea Gastrointestinal: Gastrointestinal: Reports no additional gastrointestinal complaints Genitourinary: Genitourinary: Denies dysuria Musculoskeletal: Musculoskeletal: Denies neck pain Integumentary/Breasts: Skin/Breast: Denies dry skin Neurologic: Reports Normal hearing present, Denies headache(s) and Denies weakness Psychiatric: Psychiatric: Denies anxiety Endocrine: Endocrine: Denies change in body appearance Hematologic/Lymphatic: Hematologic/Lymphatic: Denies easy bleeding Allergic/Immunologic: Allergic/Immunologic: Denies urticaria [facility] Past Medical History Medical History (Updated 11/22/22 @ 11:27 by Ricco Regalado MD) Anxiety Arthritis Back pain Bipolar disorder Colon polyp Degenerative disc disease Depression Fibromyalgia Hypertension Hypothyroidism Memory loss Rheumatic fever as a child Seizure Trichomonas vaginalis (TV) infection (01/14/17) Surgical History Surgical History History of (03/18/96) History of cholecystectomy (~2015) History of hysterectomy, supracervical (~06/2007) uterine fibroids History of left salpingo-oophorectomy (~06/2008) History of surgery on wrist (~09/27/20) left wrist broken plates and pins placed History of tubal ligation (03/28/96) Family History Family History Mother Diabetes mellitus Alzheimer disease Alcohol abuse Father Lung cancer Hypertension Alcohol abuse Mother Family history of diabetes mellitus in first degree relative Family history of dementia, Onset Age: 82 Patient's mother is Social History Social History Smoking packs per day: 0.5 Smoking cigarettes per day: 10.0 Years smoked: 9 Smoking pack-years: 4.50 Smoking status: Current every day smoker Tobacco type: cigarettes Second hand tobacco smoke exposure: Yes Alcohol intake: never Substance use: current Substance use type: marijuana Other substance usage details: 2X daily Living arrangements: alone Occupation/Education: unemployed Additional occupation/education comments: disabled Gender identity (if verbalized by the patient): Female Sexual Orientation (if Verbalized by the Patient): Straight or Heterosexual Spiritual care concerns: No Meds Home Medications and Allergies Home Medications Medication Instructions Recorded Confirmed Type aspirin 81 mg PO DAILY 11/20/20 11/22/22 History atorvastatin 10 mg tablet 10 mg PO HS 11/20/20 11/22/22 History cholecalciferol (vitamin D3) 1,250 1,250 mcg PO WEEKLY 11/20/20 11/22/22 History mcg (50,000 unit) capsule fluoxetine 20 mg capsule 60 mg PO DAILY 11/20/20 11/22/22 History hydrochlorothiazide 12.5 mg tablet 12.5 mg PO DAILY 11/20/20 11/22/22 History levothyroxine 150 mcg tablet 150 mcg PO QAM 11/20/20 11/22/22 History meloxicam 7.5 mg tablet 7.5 mg PO BID 11/20/20 11/22/22 History metoprolol succinate 25 mg 12.5 mg PO DAILY 11/20/20 11/22/22 History tablet,extended release 24 hr oxybutynin chloride 15 mg 15 mg PO DAILY 11/20/20 11/22/22 History tablet,extended release 24 hr potassium chloride 10 mEq 10 meq PO DAILY 11/20/20 11/22/22 History tablet,extended release pre
--- NOTE | 2022-11-22 11:28 | WPDANESEPPF ---
Anes - Initial Pre Proc Eval Procedure: Operation Date: 11/22/22 13:30 Proposed Procedures p Screening Colonoscopy - Ricco Regalado MD Date/Time: 11/22/22 11:28 Surgeon: Ricco Regalado MD Pre Op Diagnosis: neoplasm screening Patient Data Age: 57 Gender: F Height: 1.63 m Weight: 86.7 kg Last Vital Signs Temp 97 F L 11/22/22 11:24 Pulse 76 11/22/22 11:24 Resp 18 11/22/22 11:24 BP 140/92 H 11/22/22 11:24 Pulse Ox 99 11/22/22 11:24 O2 Del Method Room Air 11/22/22 11:24 Allergies Allergy/AdvReac Type Severity Reaction Status Date / Time No Known Allergies Allergy Verified 11/22/22 11:13 Home Medications Medication Instructions Recorded Confirmed Type aspirin 81 mg PO DAILY 11/20/20 11/22/22 History atorvastatin 10 mg tablet 10 mg PO HS 11/20/20 11/22/22 History cholecalciferol (vitamin D3) 1,250 1,250 mcg PO WEEKLY 11/20/20 11/22/22 History mcg (50,000 unit) capsule fluoxetine 20 mg capsule 60 mg PO DAILY 11/20/20 11/22/22 History hydrochlorothiazide 12.5 mg tablet 12.5 mg PO DAILY 11/20/20 11/22/22 History levothyroxine 150 mcg tablet 150 mcg PO QAM 11/20/20 11/22/22 History meloxicam 7.5 mg tablet 7.5 mg PO BID 11/20/20 11/22/22 History metoprolol succinate 25 mg 12.5 mg PO DAILY 11/20/20 11/22/22 History tablet,extended release 24 hr oxybutynin chloride 15 mg 15 mg PO DAILY 11/20/20 11/22/22 History tablet,extended release 24 hr potassium chloride 10 mEq 10 meq PO DAILY 11/20/20 11/22/22 History tablet,extended release pregabalin 200 mg capsule 200 mg PO BID 11/20/20 11/22/22 History cyclobenzaprine 10 mg tablet 10 mg PO TID PRN muscle spasms 11/11/22 11/22/22 History hydrocodone 5 mg-acetaminophen 325 1 tablet PO BID PRN Pain 11/11/22 11/22/22 History mg tablet levetiracetam 500 mg tablet 500 mg PO BID 11/11/22 11/22/22 History Patient hx anesthesia problems: none Family hx anesthesia problems: none Results Review: All pre-operative results and documents have been reviewed as part of the pre-operative evaluation. [facility] Past Medical History Medical History (Updated 11/22/22 @ 11:27 by Ricco Regalado MD) Anxiety Arthritis Back pain Bipolar disorder Colon polyp Degenerative disc disease Depression Fibromyalgia Hypertension Hypothyroidism Memory loss Rheumatic fever as a child Seizure Trichomonas vaginalis (TV) infection (01/14/17) Surgical History Surgical History History of (03/18/96) History of cholecystectomy (~2015) History of hysterectomy, supracervical (~06/2007) uterine fibroids History of left salpingo-oophorectomy (~06/2008) History of surgery on wrist (~09/27/20) left wrist broken plates and pins placed History of tubal ligation (03/28/96) Family History Family History Mother Diabetes mellitus Alzheimer disease Alcohol abuse Father Lung cancer Hypertension Alcohol abuse Mother Family history of diabetes mellitus in first degree relative Family history of dementia, Onset Age: 82 Patient's mother is Social History Social History Smoking packs per day: 0.5 Smoking cigarettes per day: 10.0 Years smoked: 9 Smoking pack-years: 4.50 Smoking status: Current every day smoker Tobacco type: cigarettes Second hand tobacco smoke exposure: Yes Alcohol intake: never Substance use: current Substance use type: marijuana Other substance usage details: 2X daily Living arrangements: alone Occupation/Education: unemployed Additional occupation/education comments: disabled Gender identity (if verbalized by the patient): Female Sexual Orientation (if Verbalized by the Patient): Straight or Heterosexual Spiritual care concerns: No Anes - Eval Final PreProce
[2022-11-22 11:51] VITALS: BP 110/74; PULSE 64; RESP 22; O2SAT 94
[2022-11-22 12:01] VITALS: BP 118/79; PULSE 70; RESP 21; O2SAT 95
[2022-11-22 12:11] VITALS: BP 124/79; PULSE 64; RESP 20; O2SAT 99
== END 2022-11-22 12:22 | disposition home or self-care (01) ==
PROVIDERS: PCP Nurse Practitioner Family; Visit Provider Internal Medicine Gastroenterology
PROC: 0DJD8ZZ Inspection of Lower Intestinal Tract, Via Natural or Artificial Opening Endoscopic (ICD-10-PCS; CPT 45378; principal; 2022-11-22 13:30)
DX: Z12.11 Encounter for screening for malignant neoplasm of colon (principal); K64.8 Other hemorrhoids; Z86.010 Personal history of colon polyps; I10 Essential (primary) hypertension; E03.9 Hypothyroidism, unspecified; G40.909 Epilepsy, unspecified, not intractable, without status epilepticus; M79.7 Fibromyalgia; F31.9 Bipolar disorder, unspecified; F41.9 Anxiety disorder, unspecified; F17.210 Nicotine dependence, cigarettes, uncomplicated; E66.9 Obesity, unspecified; Z68.32 Body mass index [BMI] 32.0-32.9, adult; Z79.82 Long term (current) use of aspirin; F12.90 Cannabis use, unspecified, uncomplicated
CPT/HCPCS: G0105; J2704; J7120

== ENCOUNTER 2023-02-09 12:40 | Emergency (ER) | payer MEDICARE, MEDICAID, SELFPAY ==
--- NOTE | ~2023-02-09 | CT_ITS ---
EXAMINATION: CT abdomen pelvis w con INDICATION: Left lower quadrant pain TECHNIQUE: Computed tomographic images of the abdomen and pelvis were obtained after the administrati on of 100 cc of Omnipaque 350 intravenous contrast. The dose-length product (DLP) was 1032.83 mGy-cm. Automated exposure control and iterative reconstruction technique were employed. COMPARISON: 08/19/2022, 10/20/2017 FINDINGS: Minimal dependent atelectasis is present in the lung bases. The heart size is normal. There is a chronic area of low-attenuation in the liver adjacent to the ligamentum teres, likely focal bo atosis. The gallbladder is surgically absent. There is mild enlargement of the common bile duct and c entral intrahepatic ducts which is likely due to post cholecystectomy state. The spleen, pancreas, an d adrenal glands are normal. The kidneys are unremarkable. No pathologically enlarged abdominal or pe lvic lymph nodes are identified. No free intraperitoneal gas or evidence of bowel obstruction. The ap pendix is normal. There is severe lumbar spondylosis. IMPRESSION: 1. No CT correlate for the patient's symptoms. Reviewed, dictated and finalized at location F.
[2023-02-09 12:57] VITALS: BP 97/74; PULSE 71; RESP 20; TEMP 36.6; O2SAT 97
[2023-02-09 14:06] LABS: Basophils Absolute Auto 0.1 K/mm3 (0.0-0.1); Basophils Percent Auto 1.2 % (0.2-1.2); Eosinophils Absolute Auto 0.4 K/mm3 (0-0.3); Eosinophils Percent Auto 3.6 % (0-4.4); Hematocrit 43.7 % (37.0-47.0); Hemoglobin 13.8 g/dL (12.0-15.0); Immature Granulocyte Absolute 0.06 K/mm3 (0.00-0.031); Immature Granulocyte Percent A 0.6 % (0-0.5); Lymphocytes Absolute Auto 2.65 K/mm3 (0.9-3.2); Mean Corpuscular HGB Conc 31.6 g/dl (32-36); Mean Corpuscular Hemoglobin 31.4 pg (26-34); Mean Corpuscular Volume 99.5 fl (80-100); Mean Platelet Volume 12.2 fl (7.4-10.4); Monocytes Absolute Auto 0.7 K/mm3 (0.1-0.6); Monocytes Percent Auto 6.8 % (2.6-8.5); Neutrophils Absolute Auto 6.7 K/mm3 (1.3-6.7); Neutrophils Percent Auto 62.8 % (45.5-73.1); Platelet Count Result 190 k/mm3 (150-375); Red Blood Count 4.39 M/mm3 (4.2-5.4); Red Cell Distribution Width 14.7 % (11.5-14.5); White Blood Count 10.6 K/mm3 (4.5-10.0)
[2023-02-09 14:13] LABS: Alanine Aminotransferase 21 U/L (6-35); Albumin Level 4.6 g/dL (3.5-5.1); Alkaline Phosphatase 96 U/L (38-126); Anion Gap 9 mmol/L (8-16); Aspartate Amino Transferase 27 U/L (14-36); Bilirubin,Total 0.6 mg/dL (0.2-1.3); Blood Urea Nitrogen 12 mg/dL (7-17); Carbon Dioxide 27 mmol/L (22-30); Chloride 101 mmol/L (98-107); Estimated CRCL calculation 43 ml/min; Estimated Glomerular Filt Rate 44; Glucose 90 mg/dL (65-110); Potassium 3.8 mmol/L (3.4-5.0); Sodium 137 mmol/L (137-145)
[2023-02-09 14:17] LABS: INR 0.9; Prothrombin Time 12.8 Seconds (11.1-14.7)
[2023-02-09 14:18] LABS: Partial Thromboplastin Time 29.7 SECONDS (22.3-36.8)
--- NOTE | 2023-02-09 14:47 | ED.GIBLEED ---
HPI - GI Bleed General Chief complaint: GI Bleed Stated complaint: blood in stools since weekend Time Seen by Provider: 02/09/23 14:27 History of Present Illness HPI Narrative: 57-year-old female history of hypertension, hypothyroidism, and recent history of colon polyps presents to the emergency room with left lower quadrant pain, diarrhea for several days, and bright red blood in her stool and on the toilet paper. Patient denies fever. States that she takes a baby aspirin daily. Reports her left lower quadrant abdominal pain radiates into her back. Denies any dysuria. Related Data Home Medications Medication Instructions Recorded Confirmed aspirin 81 mg PO DAILY 11/20/20 11/22/22 atorvastatin 10 mg tablet 10 mg PO HS 11/20/20 11/22/22 cholecalciferol (vitamin D3) 1,250 1,250 mcg PO WEEKLY 11/20/20 11/22/22 mcg (50,000 unit) capsule fluoxetine 20 mg capsule 60 mg PO DAILY 11/20/20 11/22/22 hydrochlorothiazide 12.5 mg tablet 12.5 mg PO DAILY 11/20/20 11/22/22 levothyroxine 150 mcg tablet 150 mcg PO QAM 11/20/20 11/22/22 meloxicam 7.5 mg tablet 7.5 mg PO BID 11/20/20 11/22/22 metoprolol succinate 25 mg 12.5 mg PO DAILY 11/20/20 11/22/22 tablet,extended release 24 hr oxybutynin chloride 15 mg 15 mg PO DAILY 11/20/20 11/22/22 tablet,extended release 24 hr potassium chloride 10 mEq 10 meq PO DAILY 11/20/20 11/22/22 tablet,extended release pregabalin 200 mg capsule 200 mg PO BID 11/20/20 11/22/22 cyclobenzaprine 10 mg tablet 10 mg PO TID PRN muscle spasms 11/11/22 11/22/22 hydrocodone 5 mg-acetaminophen 325 1 tablet PO BID PRN Pain 11/11/22 11/22/22 mg tablet levetiracetam 500 mg tablet 500 mg PO BID 11/11/22 11/22/22 Allergies Allergy/AdvReac Type Severity Reaction Status Date / Time No Known Allergies Allergy Verified 02/09/23 13:51 Review of Systems Review of Systems: CONSTITUTIONAL: Denies fever, chills, or sweats. EYES: Denies visual changes, redness, or discharge. ENT: Denies rhinorrhea, congestion, sore throat, or otalgia. CARDIOVASCULAR: Denies chest pain, palpitations, or edema. RESPIRATORY: Denies cough or dyspnea. GASTROINTESTINAL: Denies abdominal pain, nausea, vomiting, or diarrhea. GENITOURINARY: Denies dysuria or hematuria. SKIN: Denies rash or itching. MUSCULOSKELETAL: Denies back pain, joint pain, or myalgia. NEUROLOGIC: Denies headache, numbness, dizziness, or weakness. PSYCHIATRIC: Denies anxiety or depression. [facility] Past Medical History Medical History Anxiety Arthritis Back pain Bipolar disorder Colon polyp Degenerative disc disease Depression Fibromyalgia Hypertension Hypothyroidism Memory loss Rheumatic fever as a child Seizure Trichomonas vaginalis (TV) infection (01/14/17) Surgical History Surgical History History of (03/18/96) History of cholecystectomy (~2015) History of hysterectomy, supracervical (~06/2007) uterine fibroids History of left salpingo-oophorectomy (~06/2008) History of surgery on wrist (~09/27/20) left wrist broken plates and pins placed History of tubal ligation (03/28/96) Family History Family History Mother Diabetes mellitus Alzheimer disease Alcohol abuse Father Lung cancer Hypertension Alcohol abuse Mother Family history of diabetes mellitus in first degree relative Family history of dementia, Onset Age: 82 Patient's mother is Social History Social History Smoking packs per day: 0.5 Smoking cigarettes per day: 10.0 Years smoked: 9 Smoking pack-years: 4.50 Smoking status: Current every day smoker Tobacco type: cigarettes Second hand tobacco smoke exposure: Yes Alcohol intake: never Substance use: current Substance use type: marijuana Other substance usage details
[2023-02-09 15:22] VITALS: BP 105/69; PULSE 62; RESP 16; O2SAT 99
[2023-02-09] MEDS: SODIUM CHLORIDE 0.9% IV 1,000 ML 999 ML IV CONT (15:23)
[2023-02-09 15:36] LABS: Appearance Urine Clear (Clear); Bilirubin Urine Negative (Negative); Blood Urine Negative (Negative); Color Urine Yellow (Yellow); Glucose Urine UA Negative (Negative); Ketones Urine Negative (Negative); Leukocyte Esterase Ur Negative LEU/UL (Negative); Nitrate Urine Negative (Negative); Protein Urine Negative (Negative); Specific Grav Ur 1.012 (1.001-1.035); Urobilinogen Urine 0.2 mg/dL (<2.0)
[2023-02-09 15:47] LABS: Add Urine Microscopic? NO
== END 2023-02-09 16:28 | disposition home or self-care (01) ==
PROVIDERS: Emergency Medicine; Emergency Provider Nurse Practitioner Family; PCP Nurse Practitioner Family
DX: K64.9 Unspecified hemorrhoids (principal); R19.7 Diarrhea, unspecified; I10 Essential (primary) hypertension; E03.9 Hypothyroidism, unspecified; M19.90 Unspecified osteoarthritis, unspecified site; M79.7 Fibromyalgia; F41.9 Anxiety disorder, unspecified; F31.9 Bipolar disorder, unspecified; Z86.010 Personal history of colon polyps; Z90.49 Acquired absence of other specified parts of digestive tract; Z90.710 Acquired absence of both cervix and uterus; Z90.79 Acquired absence of other genital organ(s); Z90.721 Acquired absence of ovaries, unilateral; Z79.82 Long term (current) use of aspirin
CPT/HCPCS: 36415; 74177; 80053; 81003; 85025; 85610; 85730; 86850; 86900; 86901; 96360; 99284; J7030; Q9967

== ENCOUNTER 2023-12-11 17:22 | Emergency (ER) | payer MEDICARE, MEDICAID, SELFPAY ==
--- NOTE | ~2023-12-11 | XR_ITS ---
Left elbow Technique: AP and lateral views were obtained. Clinical History: Pain Findings: No acute fracture or dislocation is seen. Osseous alignment is anatomic. Joint spaces are p reserved. There is no displacement of the fat pads, and soft tissues are unremarkable. Impression: Unremarkable radiographs. Reviewed, dictated and finalized at location . Impression: Unremarkable radiographs.
--- NOTE | ~2023-12-11 | XR_ITS ---
Left Shoulder Technique: AP and scapular Y views were obtained. Clinical History: Trauma Findings: There is anteroinferior dislocation of the left humeral head. There is a fracture of the gr eater tuberosity, with a 2.5 x 2.4 cm greater osseous fragment which is displaced by approximately 2. 4 cm. There is mild AC joint degenerative change. Soft tissues are unremarkable. Impression: Anteroinferior dislocation of left humeral head with significantly displaced greater tuberosity fract ure fragment. Please see details above. Reviewed, dictated and finalized at location M. Impression: Anteroinferior dislocation of left humeral head with significantly displaced gr eater tuberosity fracture fragment. Please see details above.
--- NOTE | ~2023-12-11 | CT_ITS ---
CT head without contrast Indication: Head injury COMPARISON: 08/19/2022 Technique: Serial scans were obtained through the brain without the administration of contrast. Dose reduction technique was used on this scan by utilizing automated exposure control and iterative recon struction technique. The dose-length product (DLP) was 605.33 mGy-cm. Findings: There is no evidence of intracranial hemorrhage, mass lesion, or acute infarct. The ventri cles and subarachnoid spaces are unremarkable. Low attenuation regions are seen within the periventr icular white matter bilaterally, likely representing changes from chronic microvascular ischemic dise ase. There is no evidence of edema, mass effect or midline shift. The visualized paranasal sinuses and mastoid air cells are clear. Impression: No intracranial hemorrhage, mass, or acute infarct. Stable chronic white matter changes, as above. Reviewed, dictated and finalized at location . Impression: No intracranial hemorrhage, mass, or acute infarct. Stable chronic white matter changes, as above.
--- NOTE | ~2023-12-11 | XR_ITS ---
Lumbosacral Spine: AP and lateral views Clinical History: Pain Findings: There is dextroscoliosis, apex at L2. There is mild to moderate compression fracture of L2, age indeterminate. There is 3 mm retrolisthesis of L2 over L3. There is advanced facet arthropathy f rom L4 through S1. There is moderate facet arthropathy the upper lumbar spine. There is advanced dege nerative disc narrowing at L2-L3. The sacroiliac joints are normally outlined. Impression: L2 compression fracture, age-indeterminate. Moderate to advanced degenerative spondylosis, as above. Reviewed, dictated and finalized at location . Impression: L2 compression fracture, age-indeterminate. Moderate to advanced degenerative spondylosis, as above.
[2023-12-11 17:26] VITALS: BP 98/57; PULSE 68; RESP 20; TEMP 36.6; O2SAT 100
--- NOTE | 2023-12-11 19:27 | ED.GENADULT ---
HPI - General Adult General Chief complaint: Extremity Injury, Upper Stated complaint: L arm bruising, memory loss Time Seen by Provider: 12/11/23 18:51 History of Present Illness HPI narrative: 58-year-old female present to the emergency department for evaluation of bruising to her left arm. Patient states that when she went to bed Tuesday she had no bruising woke up Tuesday she had bruising. Patient suspects that maybe she had a fall from bed. Patient states that she also has associated lower back pain. Patient does complain of pain with movement of the left shoulder and left elbow. Related Data Home Medications Medication Instructions Recorded Confirmed aspirin 81 mg PO DAILY 11/20/20 11/22/22 atorvastatin 10 mg tablet 10 mg PO HS 11/20/20 11/22/22 cholecalciferol (vitamin D3) 1,250 1,250 mcg PO WEEKLY 11/20/20 11/22/22 mcg (50,000 unit) capsule fluoxetine 20 mg capsule 60 mg PO DAILY 11/20/20 11/22/22 hydrochlorothiazide 12.5 mg tablet 12.5 mg PO DAILY 11/20/20 11/22/22 levothyroxine 150 mcg tablet 150 mcg PO QAM 11/20/20 11/22/22 meloxicam 7.5 mg tablet 7.5 mg PO BID 11/20/20 11/22/22 metoprolol succinate 25 mg 12.5 mg PO DAILY 11/20/20 11/22/22 tablet,extended release 24 hr oxybutynin chloride 15 mg 15 mg PO DAILY 11/20/20 11/22/22 tablet,extended release 24 hr potassium chloride 10 mEq 10 meq PO DAILY 11/20/20 11/22/22 tablet,extended release pregabalin 200 mg capsule 200 mg PO BID 11/20/20 11/22/22 cyclobenzaprine 10 mg tablet 10 mg PO TID PRN muscle spasms 11/11/22 11/22/22 hydrocodone 5 mg-acetaminophen 325 1 tablet PO BID PRN Pain 11/11/22 11/22/22 mg tablet levetiracetam 500 mg tablet 500 mg PO BID 11/11/22 11/22/22 Allergies Allergy/AdvReac Type Severity Reaction Status Date / Time No Known Allergies Allergy Verified 02/09/23 13:51 Review of Systems Review of Systems: All systems reviewed & are unremarkable except as noted in HPI and below PMFSH Past Medical History Medical History Anxiety Arthritis Back pain Bipolar disorder Colon polyp Degenerative disc disease Depression Fibromyalgia Hypertension Hypothyroidism Memory loss Rheumatic fever as a child Seizure Trichomonas vaginalis (TV) infection (01/14/17) Surgical History Surgical History History of (03/18/96) History of cholecystectomy (~2015) History of hysterectomy, supracervical (~06/2007) uterine fibroids History of left salpingo-oophorectomy (~06/2008) History of surgery on wrist (~09/27/20) left wrist broken plates and pins placed History of tubal ligation (03/28/96) Family History Family History Mother Diabetes mellitus Alzheimer disease Alcohol abuse Father Lung cancer Hypertension Alcohol abuse Mother Family history of diabetes mellitus in first degree relative Family history of dementia, Onset Age: 82 Patient's mother is Social History Social History Smoking packs per day: 0.5 Smoking cigarettes per day: 10.0 Years smoked: 9 Smoking pack-years: 4.50 Smoking status: Current every day smoker Tobacco type: cigarettes Second hand tobacco smoke exposure: Yes Alcohol intake: never Substance use: current Substance use type: marijuana Other substance usage details: 2X daily Living arrangements: alone Occupation/Education: unemployed Additional occupation/education comments: disabled Gender identity (if verbalized by the patient): Female Sexual Orientation (if Verbalized by the Patient): Straight or Heterosexual Spiritual care concerns: No Exam Narrative: APPEARANCE: Well appearing, no pain, no distress, well-nourished. HEAD: normocephalic, atraumatic. EYES: PERRLA/EOMI, conjunctivae clear. NOSE: Normal no draina
[2023-12-11 20:46] LABS: Basophils Absolute Auto 0.1 K/mm3 (0.0-0.1); Basophils Percent Auto 0.9 % (0.2-1.2); Eosinophils Absolute Auto 0.3 K/mm3 (0-0.3); Eosinophils Percent Auto 3.3 % (0-4.4); Hematocrit 37.3 % (37.0-47.0); Hemoglobin 11.9 g/dL (12.0-15.0); Immature Granulocyte Absolute 0.04 K/mm3 (0.00-0.031); Immature Granulocyte Percent A 0.4 % (0-0.5); Lymphocytes Absolute Auto 2.08 K/mm3 (0.9-3.2); Mean Corpuscular HGB Conc 31.9 g/dl (32-36); Mean Corpuscular Hemoglobin 28.1 pg (26-34); Mean Platelet Volume 12.5 fl (7.4-10.4); Monocytes Absolute Auto 0.9 K/mm3 (0.1-0.6); Monocytes Percent Auto 9.8 % (2.6-8.5); Neutrophils Absolute Auto 5.7 K/mm3 (1.3-6.7); Neutrophils Percent Auto 62.6 % (45.5-73.1); Platelet Count Result 222 k/mm3 (150-375); Red Blood Count 4.24 M/mm3 (4.2-5.4); Red Cell Distribution Width 17.3 % (11.5-14.5)
[2023-12-11] MEDS: HYDROmorphone HCL INJ (*CRX) 1 MG/ML SYR 0.5 MG IV PUSH (20:53)
[2023-12-11 20:57] LABS: Alanine Aminotransferase 15 U/L (6-35); Albumin Level 4.3 g/dL (3.5-5.1); Alkaline Phosphatase 89 U/L (38-126); Anion Gap 8 mmol/L (4-12); Aspartate Amino Transferase 24 U/L (14-36); Bilirubin,Total 0.8 mg/dL (0.2-1.3); Blood Urea Nitrogen 8 mg/dL (7-17); Calcium 8.9 mg/dL (8.4-10.2); Carbon Dioxide 33 mmol/L (22-30); Chloride 97 mmol/L (98-107); Estimated CRCL calculation 53 ml/min; Estimated Glomerular Filt Rate 57; Glucose 98 mg/dL (65-110); Potassium 2.9 mmol/L (3.4-5.0); Sodium 138 mmol/L (137-145)
[2023-12-11 21:00] LABS: Prothrombin Time 13.6 Seconds (11.1-14.7)
[2023-12-11 21:01] LABS: Partial Thromboplastin Time 32.7 Seconds (22.3-36.8)
== END 2023-12-11 22:14 | disposition short-term general hospital (02) ==
PROVIDERS: Emergency Provider Emergency Medicine; PCP Nurse Practitioner Family
DX: S42.252A Displaced fracture of greater tuberosity of left humerus, initial encounter for closed fracture (principal); I10 Essential (primary) hypertension; E03.9 Hypothyroidism, unspecified; M79.7 Fibromyalgia; M19.90 Unspecified osteoarthritis, unspecified site; F31.9 Bipolar disorder, unspecified; F41.9 Anxiety disorder, unspecified; F17.210 Nicotine dependence, cigarettes, uncomplicated; Z86.010 Personal history of colon polyps; Z90.49 Acquired absence of other specified parts of digestive tract; Z90.710 Acquired absence of both cervix and uterus; Z79.899 Other long term (current) drug therapy; Z79.82 Long term (current) use of aspirin; M47.816 Spondylosis without myelopathy or radiculopathy, lumbar region; X58.XXXA Exposure to other specified factors, initial encounter
CPT/HCPCS: 36415; 70450; 72100; 73030; 73070; 80053; 85025; 85610; 85730; 96374; 99285; J1170